=== PATIENT | female | born 1970 | race Caucasian/White ===

== ENCOUNTER → 2017-10-03 | Outpatient (CLI) | payer BC ==
[~2017-10-03] VITALS: Ht 154.9 cm; Wt 104.9 kg
[~2017-10-03] MED LIST: CALCTAB5 PO; CLR10 PO; LIOT5TAB PO; LMC/150 PO; MULTCAP42 PO; SYN150 PO; VENL100T2 PO
[2017-10-03 14:30] VITALS: BP 160/114; PULSE 101; Ht 154.9 cm; Wt 104.9 kg
== END | disposition home or self-care (01) ==
LOC: C.NEUR 14:12
PROVIDERS: ATTEND Internal Medicine Pulmonary Disease
DX: E66.01 Morbid (severe) obesity due to excess calories (principal); Z91.89 Other specified personal risk factors, not elsewhere classified; R06.81 Apnea, not elsewhere classified; R06.83 Snoring; R53.83 Other fatigue

== ENCOUNTER → 2017-10-22 | Outpatient (CLI) | payer BC ==
--- NOTE | 2017-10-23 06:31 | SPLIT NIGHT TECHNICIAN REPORT ---
[facility] Split Night Polysomnogram - Secondary History Teacher Report Study date: 10/22/2017 Referring Physician: Boston Castellon M.D. Name: AYANACHAITANYA GAR Secondary History Teacher: VALENCIA Cheney. Date of : 1970 Height: 47 years, Height 5' 1" Sex: Female Weight: 231 lbs Age: 47 Neck Circum: 14 in BMI: Medications: 43.64 CALCIUM CITRATE + D 315-200 MG/UNIT, CLARITIN, CYTOMEL, EFFEXOR 100 MG, LAMICTAL 150 MG, LEVOTHYROXINE 125 MCG, LOSARTAN 25 MG, VENLAFAXINE 50 MG Patient History 47 yr-old female here for a baseline/modified split study (CPAP to be introduced if AHI exceeds 5). She has had previous sleep testing. She was found to be positive for GUNNAR and was placed on CPAP treatment. She then had gastric bypass surgery, lost weight, and discontinued CPAP. She is back to assess her GUNNAR since gaining weight. Her Bartlett scale is 9. The test was started on room air. ETCO2 testing was not utilized during this study. Room 1 Parameters Monitored NPSG: E1-M2, E2-M1, Fp1-M2, Fp2-M1, F3-M2, F4-M2, F4-M1, C3-M2, C4-M2, C4-M1, O1-M2, O2-M2, O2-M1, T3-M2, T4-M1, P3-M2, P4-M1, CHIN1, CHIN2, HR, EKG, Legs, PFLOW, SNOR, FLOW, CFLOW, Tidal Volume, THOR, ABDO, SpO2, PLTH, CPRESS, ETCO2 Wave, ETCO2, pH SLEEP SUMMARY DATA DIAGNOSTIC TREATMENT Lights Out: 9:50:08 PM 12:35:38 AM Lights On: 12:22:38 AM 5:23:08 AM Total Recording Time (TRT): 152.5 min. 287.5 min. Total Sleep Time (TST): 134.5 min. 264.5 min. NREM Time: 134.5 min. 220.0 min. REM Time: 0.0 min. 44.5 min. Sleep Period Time (SPT): 149.5 min. 283.0 min. Sleep Efficiency (SE): 88 % 92 % Sleep Latency: 3.0 min. 4.5 min. Arousal Index: 19.2 21.6 PAP Treatment Levels: 4, 6, 7 * Optimal Pressure(s) SLEEP STAGING DATA DIAGNOSTIC TREATMENT Duration (min) TST % Duration (min) TST % Stage Wake: 18.0 min. -- 23.0 min. -- WASO: 15.0 min. -- 18.5 min. -- NREM: 134.5 min. 100 % 220.0 min. 83 % Stage N1: 27.5 min. 20 % 54.0 min. 20 % Stage N2: 79.0 min. 59 % 166.0 min. 63 % Stage N3: 28.0 min. 21 % 0.0 min. 0 % REM: 0.0 min. 0 % 44.5 min. 17 % POSITIONAL DATA Event Count Index Event Count Index Supine: 16 7 19 5.9 Supine NREM: 16 7.1 18 7.3 Supine REM: N/A N/A 1 1 Non-Supine: N/A N/A 0 0.0 Non-Supine NREM: N/A N/A 0 0.0 Non-Supine REM: N/A N/A N/A N/A AROUSAL SUMMARY DATA: Event Count Index Event Count Index Apnea Arousals: 0 0.0 0 0.2 Hypopnea Arousals: 4 1.8 5 1.1 Snore Arousals: 6 2.7 9 2.0 PLM Arousals: 15 6.7 12 2.7 Non-Specific Arousals: 15 6.7 38 8.6 Total Arousals: 43 19.2 95 21.6 MYOCLONUS (PLM) Event Count Index Event Count Index PLM: 31 13.8 49 11.1 PLM AROUSAL: 15 6.7 12 2.7 PLM W/O AROUSAL 31 13.8 37 8.4 PLM W/RESP EVENT 1 0.0 0 0.0 MYOCLONUS (PLM) Event Count Index Event Count Index LM: 4 10.7 84 19.1 LM AROUSAL: 4 1.8 31 7.0 LM W/O AROUSAL LM W/RESP EVENT LM NON SPECIFIC 33 14.7 88 20.0 HEART RATE DATA DIAGNOSTIC TREATMENT Sleep (bpm): 88 79 REM (bpm): N/A 96 NREM (bpm): 94 95 Tachycardia Count: 0 0 Tachycardia Duration: 0.00 0 Bradycardia Count: 0 0 Bradycardia Duration: 0.00 0 DIAGNOSTIC PORTION TREATMENT PORTION RESPIRATORY DATA Event Count Index Event Count Index AHI: -- 7.1 -- 4.3 RDI: -- 7.1 -- 4 Obstructive Apnea: 0 0.0 0 0.0 Central Apnea: 0 0.0 1 0.2 Mixed Apnea: 0 0.0 0 0.0 Hypopnea: 16 7.1 18 4.1 RERA: 0 0.0 0 0.0 Total Apneas: 0 0.0 1 0.2 RESPIRATORY DATA REM NREM SLEEP REM NREM SLEEP Supine Position: Obstructive Apneas: N/A 0 0 0 0 0 Central Apneas: N/A 0 0 1 0 1 Mixed Apneas: N/A 0 0 0 0 0 Hypopneas: N/A 16 16 0 18 18 RERA N/A 0 0 0 0 0 Total Supine Events: N/A 16 16 1 18 19 Supine AHI: N/A 7.1 7 1 7.3 5.9 Supine RDI: N/A 7.1 7.1 1.3 7.3 5.9 REM NREM SLEEP REM NREM SLEEP Non-Supine Position: Obstructive Apneas: N/A N/A N/A N/A 0 0 Central Apneas: N/A N/A N/A N/A 0 0 Mixed Apneas: N/A N/A N/A N/A 0 0 Hypopneas: N/A N/A N/A N/A 0 0 RERA N/A N/A N/A N/A 0 0 Total Supine Events: N/A N/A N/A N/A 0 0 Supine AHI: N/A N/A N/A N/A 0.0 0.0 Supine RDI: N/A N/A N/A N/A 0.0 0.0 OXYGEN DESTAURATION DATA: Event Count Index Event Count Index REM Desaturations: N/A N/A 3 4.0 NREM Desaturations: 26 11.6 42 11.5 SNORE DATA DIAGNOSTIC TREATMENT Snore Time: 1.7 12:40:08 AM Snore TST%: 1 2 Snore Arousal Count: 6 9 Snore Arousal Index: 2.7 2.0 Desaturation Event Summary: Minimum %SpO2 Event Count Mean/Min/Max Duration(sec.) Desaturation Index % Time In Bed > 90 80 19.2 / 6.0 / 60.0 11.0 99.9 86 - 90 0 N/A 0.0 0.1 81 - 85 1 16.3 / 16.3 / 16.3 1309.1 0.0 76 - 80 1 16.3 / 16.3 / 16.3 261.8 0.1 71 - 75 0 N/A 0.0 0.0 66 - 70 0 N/A 0.0 0.0 61 - 65 0 N/A 0.0 0.0 56 - 60 0 N/A 0.0 0.0 51 - 55 0 N/A 0.0 0.0 < 50 0 N/A 0.0 0.0 OXYGEN SATURATION DATA DIAGNOSTIC TREATMENT SpO2 Mean Sleep: 94 % 95 % SpO2 Mean REM: N/A % 96 % SpO2 Mean NREM: 94 % 95 % SpO2 Minimum Sleep: 90 % 78 % SpO2 Minimum REM: N/A % 93 % SpO2 Minimum NREM: 90 % 78 % Time Below 90% (TST): 0.0 0.2 Time Below 88% (TST): 0.0 0.2 Total REM NREM Awake <50% 0.0 min. 0.0 min. 0.0 min. 0.0 min. 51 - 60% 0.0 min. 0.0 min. 0.0 min. 0.0 min. 61 - 70% 0.0 min. 0.0 min. 0.0 min. 0.0 min. 71 - 80% 0.2 min. 0.0 min. 0.2 min. 0.0 min. 81 - 90% 0.4 min. 0.0 min. 0.2 min. 0.2 min. 91 - 100% 436.7 min. 44.5 min. 352.2 min. 39.9 min. Average 95 96 95 96 Minimum SpO2 78 93 78 84 Desaturation Event Index 11.0 4.0 11.5 17.6 # Desat. Events below 89% 1 N/A 1 N/A Time(%) with Saturation below 89% 0.1 0.0 0.1 0.0 Time(min.) with Saturation below 89% 0.3 0.0 0.2 0.1 Recording Secondary History Teacher Comments: Ms. Palmer slept in the right and supine positions. No cardiac arrhythmias were noted. PLMs were noted. No bruxism noted. Snoring was noted and scored as a 2 on a scale of 1 through 5. (0=no snoring, 5=snoring loud enough to be heard through a closed door or down the shahid way) At 12:34, she met specific Split-Night criteria during the diagnostic portion of this study. CPAP was initiated at +4 CMH2O and up-titrated to a level of +7 CMH2O, Cflex 2 which nearly eliminated all respiratory events and snoring. A Mirage FX Soft edge nasal mask size small from [employer] was used during titration. She awoke to use the restroom one time during the night. Ms. Palmer stated that she slept about the same as usual. The final report will be interpreted and signed by a sleep physician. The completed physician report will then be placed in the patient medical record. Therapy Event: Therapy (cm H20) 0 4 6 7 Total Time at Pressure (min.) 152.5 27.3 102.5 157.7 TST at Pressure (min.) 134.5 20.8 94.5 149.2 # Periods 1 1 1 1 Sleep Onset (min.) 3.0 4.5 0.0 0.0 REM Onset (min.) N/A N/A N/A 73.2 Sleep Efficiency % 88 76 92 94 Wakefulness (%) 11.8 23.8 7.8 5.4 Wakefulness (min.) 18.0 6.5 8.0 8.5 NREM 1 (%) 18.0 51.2 15.1 15.5 NREM 1 (min.) 27.5 14.0 15.5 24.5 NREM 2 (%) 51.8 25.0 77.1 50.9 NREM 2 (min.) 79.0 6.8 79.0 80.2 NREM 3 (%) 18.4 0.0 0.0 0.0 NREM 3 (min.) 28.0 0.0 0.0 0.0 REM (%) 0.0 0.0 0.0 28.2 REM (min.) 0.0 0.0 0.0 44.5 # Arousals 43 20 34 41 Arousal Index 19.2 57.6 21.6 16.5 # Snore 62 2 14 25 Snore Index 27.7 5.8 8.9 10.1 AHI 7.1 34.6 2.5 1.2 AHI Supine 7.1 34.6 10.4 1.2 AHI Non-Supine N/A N/A 0.0 N/A NREM AHI 7.1 34.6 2.5 1.1 REM AHI N/A N/A N/A 1.3 RDI 7.1 34.6 2.5 1.2 # Obstructive 0 0 0 0 # Central Ap 0 0 0 1 # Mixed 0 0 0 0 # Hypopneas 16 12 4 2 RERAS 0 0 0 0 Total Respiratory Events 16 12 4 3 Time Below SpO2 89.00% (min.) 0.0 0.0 0.0 0.2 Mean NREM SpO2 (%) 94 95 95 95 Mean REM SpO2 (%) N/A N/A N/A 96 Mean Sleep SpO2 (%) 94 95 95 95 Min NREM SpO2 (%) 90 91 91 78 Min REM SpO2 (%) N/A N/A N/A 93 Position Supine (min.) 134.5 20.8 23.1 149.2 Position Non-supine (min.) 0.0 0.0 71.3 0.0 LM Index Sleep 24.5 46.1 28.6 29.0 LM Index NREM 24.5 46.1 28.6 18.9 LM Index REM N/A N/A N/A 52.6 Mean Heart Rate (bpm) 88 79 81 77 Min Heart Rate (bpm) 78 73 72 67 CPAP REPORT Therapy Detail Time / Page # Comment CPAP 4 cm H2O Nasal Mask Flex Pressure Relief Humidifier on 12:34:36 AM / pg. 443 SHE HAS OVER 2 HOURS OF TEST AND HER AHI IS ABOVE 5 (PER THE DOCTORS H&P) CPAP 6 cm H2O Nasal Mask Flex Pressure Relief Humidifier on 1:02:58 AM / pg. 500 INCREASED FOR HYPOPNEAS CPAP 7 cm H2O Nasal Mask Flex Pressure Relief Humidifier on 2:45:25 AM / pg. 705 INCREASED FOR MORE HYPOPNEAS
--- NOTE | 2017-10-24 17:06 | POLYSOMNOGRAPH REPORT ---
CLINICAL DATA: A 47-year-old female with a history of sleep apnea. The patient had been on CPAP and then had gastric bypass surgery. She is back for reassessment of possible sleep apnea. This was a split night study. SLEEP ARCHITECTURE: For the diagnostic portion of the study, sleep period time was 149.5 minutes. Total sleep time was 134.5 minutes, all non-REM sleep. Sleep latency was 3 minutes. Sleep efficiency was 88%. Sleep consisted of stage N1 20%, stage N2 59%, and stage N3 21%. For the treatment portion of the study, sleep period time was 283 minutes. Total sleep time was 264.5 minutes divided between 220 minutes of non-REM sleep and 44.5 minutes of REM sleep. Sleep latency was 4.5 minutes. Sleep efficiency was 92%. Sleep consisted of stage N1 20%, stage N2 63%, and REM 17%. AROUSAL DATA: Prior to treatment, 43 arousals were recorded for an index of 19.2 per hour. During treatment, 95 arousals were recorded for an index of 21.6 per hour. PLM DATA: Prior to treatment, 33 limb movements during sleep were noted for an index of 14.7 per hour. During treatment, 88 limb movements during sleep were noted for an index of 20 per hour. EKG: Heart rates ranged from 79-96 beats per minute. No arrhythmias were noted. RESPIRATORY DATA: Mild sleep apnea was documented prior to treatment. The AHI was 7.1. There were 16 hypopneic episodes. During treatment, the AHI was 4.3. There was 1 central apneic episode and 18 hypopneic episodes. OXIMETRY DATA: Oxygen simone was 78% during non-REM sleep during treatment. Mean saturation with treatment was 95%. GYROSCOPE TECHNICIAN'S COMMENTS AND TREATMENT SUMMARY: The patient slept in the right, supine position. Snoring was mild, rated 2 on a scale of 5. At 12:34 a.m., she met modified split night criteria. CPAP was started using a Mirage FX soft edge nasal mask from [employer]. She was titrated up to 7 cm water pressure, C-Flex setting 2. At her final pressure setting, she slept for 149.2 minutes with an AHI of 1.2. IMPRESSION: Mild obstructive sleep apnea/hypopnea with nocturnal hypoxemia corrected with CPAP 7 cm water pressure, C-Flex setting 2 using a Mirage FX soft edge nasal mask from [employer]. RECOMMENDATIONS: The patient will be started on the above-noted treatment regimen and seen back in followup within 90 days to document efficacy and compliance. MTDD
== END | disposition home or self-care (01) ==
LOC: C.NEUR 21:00
PROVIDERS: ATTEND Internal Medicine Pulmonary Disease
DX: Z91.89 Other specified personal risk factors, not elsewhere classified (principal); R53.83 Other fatigue; E66.01 Morbid (severe) obesity due to excess calories; R06.83 Snoring; R06.81 Apnea, not elsewhere classified

== ENCOUNTER → 2017-10-28 | Outpatient (CLI) | payer BC ==
[~2017-10-28] VITALS: Ht 154.9 cm; Wt 103.2 kg
[2017-10-28 15:15] VITALS: BP 138/87; PULSE 97; Ht 154.9 cm; Wt 103.2 kg
== END | disposition home or self-care (01) ==
LOC: C.NEUR 15:10
PROVIDERS: ATTEND Internal Medicine Pulmonary Disease
DX: G47.33 Obstructive sleep apnea (adult) (pediatric) (principal); E66.01 Morbid (severe) obesity due to excess calories; R53.83 Other fatigue; I10 Essential (primary) hypertension

== ENCOUNTER 2019-08-12 15:12 | Inpatient (IN) ==
[2019-08-12 16:20] LABS: Basophils # (auto) 0.04 K/uL (0-0.2); Basophils % (auto) 0.8 %; Eosinophils # (auto) 0.05 K/uL (0-0.5); Hematocrit (blood only) 37.6 % (37-47); Hemoglobin 12.3 g/dL (12.0-16.0); Immature Granulocytes # (auto) 0.01 K/uL (0.00-0.02); Immature Granulocytes % (auto) 0.2 %; Lymphocytes # (auto) 1.42 K/uL (1.2-3.4); Lymphocytes % (auto) 28.1 %; Mean Corpuscular Hemoglobin 28.8 pg (25-34); Mean Corpuscular Hgb Conc 32.7 g/dL (32-36); Mean Corpuscular Volume 88.1 fL (80-100); Mean Platelet Volume 9.4 fL (7.4-10.4); Monocytes % (auto) 5.9 %; Neutrophils # (auto) 3.23 K/uL (1.4-6.5); Platelet Count 245 K/uL (130-400); RDW Coefficient of Variation 13.4 % (11.5-14.5); Red Blood Count 4.27 M/uL (4.2-5.4); White Blood Count 5.05 K/uL (4.8-10.8)
[2019-08-12 16:38] LABS: Albumin Level 3.3 gm/dl (3.4-5.0); BUN Creatinine Ratio 15.4 (10-20); Calcium 8.7 mg/dl (8.5-10.1); Creatinine Clr Calc Pharmacy 124.4 ml/min; Est GFR (African American) 122.3; Est GFR (Non-African American) 105.5; Potassium 3.8 mmol/L (3.5-5.1)
[2019-08-12 16:49] LABS: Albumin Globulin Ratio 0.8 (0.9-2); Bilirubin,Total 0.2 mg/dl (0.2-1); Thyroid Stimulating Hormone 1.89 uIu/ml (0.300-4.500); Total Protein 7.3 gm/dl (6.4-8.2)
[2019-08-12 16:53] LABS: Acetaminophen < 2 ug/ml (10-30); Salicylate < 1.7 mg/dl (2.8-20)
[2019-08-12] MEDS ORDERED: ACETAMINOPHEN 500 MG TAB PO STA (18:10)
[2019-08-12 18:19] LABS: Appearance Urine Clear (Clear); Bilirubin Urine Negative (Negative); Blood Urine Negative (Negative); Color Urine Yellow; Glucose Urine UA Negative (Negative); Ketones Urine Negative (Negative); Leukocyte Esterase Urine Negative (Negative); Nitrite Urine Negative (Negative); Protein Urine Negative (Negative); Specific Gravity Urine 1.011 (1.000-1.030); Urobilinogen Urine Negative (Negative); pH Urine 8.5 (4.5-7.5)
[2019-08-12 18:36] LABS: Amphetamines+Metham, Urine Neg (Neg); Barbiturates, Urine Neg (Neg); Benzodiazepine, Urine Neg (Neg); Cocaine, Urine Neg (Neg); MDMA (Ecstacy), Urine Neg (Neg); Methadone, Urine Neg (Neg); Opiate, Urine Neg (Neg); Phencyclidine, Urine Neg (Neg)
[2019-08-12] MEDS ORDERED: LIDOCAINE/EPINEPHRINE 1% 20 ML VIAL INFIL ONE (20:45)
--- NOTE | 2019-08-12 21:25 | Emergency Department Note ---
Entered by Rosalee Lopez acting as a scribe for History of Present Illness General Chief complaint: Mental Health Evaluation Stated complaint: MENTAL HEALTH EVALUATION Time Seen by Provider: 08/12/19 15:33 Source: patient History of Present Illness Onset (ago): month(s) 1 Location: head, upper extremity and lower extremity Maximum Pain Intensity: 1 Quality: + other (mental health evaluation) Associated symptoms: + other (Positive SI, difficulties sleeping, loss of interest in things that used to bring her max, feeling guilty about how she is feeling and how this has affected her relationship, loss of energy. Negative HI, smoking, recent alcohol use, chance of ) The patient is a 49 year old female who presents to the ED for a mental health evaluation. She states she has had suicidal ideations for many years however, they have worsened over the past month and week. She notes she has not recently attempted suicide. She states she does not have a specific plan. She notes she has access to old pain pills at home but she asked her friend to take them away from her. She reports her has a hand gun in a lock box in the garage. The patient states she has been diagnosed with major depression and sees Dr. Reilly. She states she is in therapy with Diann Burger. She is on effexor, Lamictal, and wellbutrin. The patient states she has difficulties sleeping, loss of interest in things that used to bring her max. She states she feels guilty about how she is feeling and how this has affected her relationship. She states she has less energy but denies any HI, smoking, recent alcohol use, chance of . Home Medications Home Medications Medication Instructions Recorded Confirmed Type calcium citrate malate-vitamin D3 1 tab PO BID tab 12/25/18 08/12/19 History 250 mg-100 unit tablet lamotrigine 150 mg tablet 150 mg PO HS 12/25/18 08/12/19 History levothyroxine 125 mcg capsule 125 mcg PO DAILY 12/25/18 08/12/19 History multivitamin-calcium carb 1 tab PO DAILY 12/25/18 08/12/19 History loratadine 10 mg capsule 10 mg PO HS PRN cap 01/22/19 08/12/19 History bupropion HCl [Wellbutrin XL] 150 mg PO DAILY 08/12/19 08/12/19 History liothyronine [Cytomel] 5 mcg PO DAILY 08/12/19 08/12/19 History losartan [Cozaar] 75 mg PO DAILY 08/12/19 08/12/19 History meclizine 25 mg PO TID PRN 08/12/19 08/12/19 History venlafaxine 150 mg PO TID 08/12/19 08/12/19 History Allergies Allergy/AdvReac Type Severity Reaction Status Date / Time adhesive Allergy Unknown REDNESS, Verified 08/12/19 17:37 ITCHINESS No Known Drug Allergies Allergy Unknown . Verified 08/12/19 17:37 Past Med/Surg History Medical History Depression (Acute) Hypertension (Acute) Hypothyroidism (Acute) Obstructive sleep apnea (Acute) Surgical History No pertinent past surgical history Family History Other No pertinent family history in first degree relatives Social History Preferred Language: Singaporean Feels Safe at Home: Yes Smoking Status: Former smoker Review of Systems See HPI for pertinent positives & negatives. and A total of 10 systems reviewed and were otherwise negative Physical Exam Vital Signs Vital Signs - 24 hr 08/12/19 15:16 08/12/19 20:14 08/12/19 21:40 Temperature 36.8 C Temperature Source Oral Pulse Rate 90 Pulse Rate [Right Radial] 88 Pulse Rhythm Regular Pulse Strength Normal Respiratory Rate 16 18 Respiratory Effort / Characteristics Non-Labored Non-Labored Respiratory Depth Normal Normal Respiratory Pattern Regular Blood Pressure 183/134 H Blood Pressure [Right Arm] 162/103 H 139/89 Blood Pressure Mean 150 Blood Pressure Mean [Right Arm] 122 105 Blood Pressure Position Sitting Blood Pressure Position [Right Arm] Lying Lying Pulse Oximetry 100 96 Oxygen Delivery Method Room Air Sepsis Recent Fever Within 48 Hours No Sepsis Action Taken by Nursing No Action Required GENERAL: She is oriented to person, place, and time. She appears well-developed and well-nourished. She does not appear distressed. HENT: Exam performed. Head: Normocephalic and atraumatic. Right Ear: External ear normal. No mastoid tenderness. Left Ear: External ear normal. No mastoid tenderness. Mouth/Throat: The oropharynx is clear and moist. No trismus in the jaw. No dental abscesses or uvula swelling. No oropharyngeal exudate or tonsillar abscesses. EYES: Conjunctivae and EOM are normal. Pupils are equal, round, and reactive to light. Right eye exhibits no discharge. Left eye exhibits no discharge. No scleral icterus. NECK: Normal range of motion. Neck supple. No JVD present. No spinous process tenderness present. No carotid bruit present. No rigidity. No tracheal deviation and normal range of motion present. No Brudzinski's sign and no Kernig's sign noted. CV: Normal rate, regular rhythm, normal heart sounds and intact distal pulses. There is no peripheral edema. Palpable radial pulses bue. PULM/CHEST: Effort normal and breath sounds normal. No respiratory distress. No stridor. She has no wheezes. She has no rales. Chest Wall: She exhibits no tenderness. ABD: The abdomen is soft. Bowel sounds are normal. She has no distension. No mass is present. There is no tenderness. There is no rebound, no guarding, no Combs's sign and no tenderness at McBurney's point. Rovsig negative MUSC/SKEL: Normal range of motion. There is no peripheral edema, tenderness or deformity. LYMPH: No cervical adenopathy. NEURO: She is alert and oriented to person, place, and time. She has normal strength. No cranial nerve deficit or sensory deficit. Coordination and gait normal. GCS eye subscore is 4. GCS verbal subscore is 5. GCS motor subscore is 6. cerbellar tests wnl. SKIN: Skin is warm and dry. She is not diaphoretic. PSYCH: Flat affect. Appears depressed. Positive SI Course Course 1637: Past medical records reviewed. The patient was evaluated in room C8. A complete history and physical exam was performed. 1800: Patient medically cleared. Vital signs stable. Patient is willing to come into the hospital for inpatient psychiatric treatment voluntarily. I think this will be beneficial to the patient, awaiting psychiatric inpatient evaluation and placement. Patient placed in observation at this time. Administered Medications Discontinued Medications Acetaminophen (Tylenol) 1,000 mg PO NOW STA Stop: 08/12/19 18:11 Last Admin: 08/12/19 18:35 Dose: 1,000 mg Documented by: [id number] Lidocaine/Epinephrine (Xylocaine/Epinephrine 1%) 20 ml INFIL NOW ONE Stop: 08/12/19 20:46 Last Admin: 08/12/19 21:40 Dose: Not Given Documented by: [id number] Medical Decision Making Medical Records Attestation: I reviewed the patient's medical records. Home Medications Current Medication List: was personally reviewed by me Laboratory Data Attestation: I reviewed the patient's lab results. Result diagrams: 08/12/19 16:06 08/12/19 16:06 Lab Results 08/12/19 08/12/19 08/12/19 Range/Units 16:06 16:06 16:06 WBC 5.05 (4.8-10.8) K/uL RBC 4.27 (4.2-5.4) M/uL Hgb 12.3 (12.0-16.0) g/dL Hct 37.6 (37-47) % MCV 88.1 (80-100) fL MCH 28.8 (25-34) pg MCHC 32.7 (32-36) g/dL RDW Std Deviation 43.0 (36.4-46.3) fL RDW Coeff of Mark 13.4 (11.5-14.5) % Plt Count 245 (130-400) K/uL MPV 9.4 (7.4-10.4) fL Immature Gran % (Auto) 0.2 % Neut % (Auto) 64.0 % Lymph % (Auto) 28.1 % Baxter % (Auto) 5.9 % Eos % (Auto) 1.0 % Baso % (Auto) 0.8 % Immature Gran # (Auto) 0.01 (0.00-0.02) K/uL Neut # (Auto) 3.23 (1.4-6.5) K/uL Lymph # (Auto) 1.42 (1.2-3.4) K/uL Baxter # (Auto) 0.30 (0.11-0.59) K/uL Eos # (Auto) 0.05 (0-0.5) K/uL Baso # (Auto) 0.04 (0-0.2) K/uL Sodium 141 (136-145) mmol/L Potassium 3.8 (3.5-5.1) mmol/L Chloride 107 (98-107) mmol/L Carbon Dioxide 28 (21-32) mmol/L Anion Gap 6.0 (3-11) BUN 10 (7-18) mg/dl Creatinine 0.64 (0.6-1.2) mg/dl Est Cr Clr Drug Dosing 124.4 ml/min Est GFR ( Amer) 122.3 Est GFR (Non-Af Amer) 105.5 BUN/Creatinine Ratio 15.4 (10-20) Glucose 107 H (70-99) mg/dl Calcium 8.7 (8.5-10.1) mg/dl Total Bilirubin 0.2 (0.2-1) mg/dl AST 14 L (15-37) U/L ALT 21 (12-78) U/L Alkaline Phosphatase 152 H (45-117) U/L Total Protein 7.3 (6.4-8.2) gm/dl Albumin 3.3 L (3.4-5.0) gm/dl Globulin 4.0 (2.5-4.0) gm/dl Albumin/Globulin Ratio 0.8 L (0.9-2) TSH 1.890 (0.300-4.500) uIu/ml Urine Color Urine Appearance (Clear) Urine pH (4.5-7.5) Ur Specific [place] (1.000-1.030) Urine Protein (Negative) Urine Glucose (UA) (Negative) Urine Ketones (Negative) Urine Blood (Negative) Urine Nitrite (Negative) Urine Bilirubin (Negative) Urine Urobilinogen (Negative) Ur Leukocyte Esterase (Negative) Salicylates < 1.7 L (2.8-20) mg/dl Urine Opiates Screen (Neg) Ur Methadone, Qual (Neg) Acetaminophen < 2 L (10-30) ug/ml Urine Barbiturates (Neg) Ur Phencyclidine (PCP) (Neg) U Amphetamin/Meth Scrn (Neg) MDMA (Ecstasy) Screen (Neg) U Benzodiazepines Scrn (Neg) Ur Cocaine Metabolite (Neg) U Marijuana (THC) Screen (Neg) Ethyl Alcohol mg/dL (0-3) mg/dl 08/12/19 08/12/19 08/12/19 Range/Units 16:06 17:50 17:50 WBC (4.8-10.8) K/uL RBC (4.2-5.4) M/uL Hgb (12.0-16.0) g/dL Hct (37-47) % MCV (80-100) fL MCH (25-34) pg MCHC (32-36) g/dL RDW Std Deviation (36.4-46.3) fL RDW Coeff of Mark (11.5-14.5) % Plt Count (130-400) K/uL MPV (7.4-10.4) fL Immature Gran % (Auto) % Neut % (Auto) % Lymph % (Auto) % Baxter % (Auto) % Eos % (Auto) % Baso % (Auto) % Immature Gran # (Auto) (0.00-0.02) K/uL Neut # (Auto) (1.4-6.5) K/uL Lymph # (Auto) (1.2-3.4) K/uL Baxter # (Auto) (0.11-0.59) K/uL Eos # (Auto) (0-0.5) K/uL Baso # (Auto) (0-0.2) K/uL Sodium (136-145) mmol/L Potassium (3.5-5.1) mmol/L Chloride (98-107) mmol/L Carbon Dioxide (21-32) mmol/L Anion Gap (3-11) BUN (7-18) mg/dl Creatinine (0.6-1.2) mg/dl Est Cr Clr Drug Dosing ml/min Est GFR ( Amer) Est GFR (Non-Af Amer) BUN/Creatinine Ratio (10-20) Glucose (70-99) mg/dl Calcium (8.5-10.1) mg/dl Total Bilirubin (0.2-1) mg/dl AST (15-37) U/L ALT (12-78) U/L Alkaline Phosphatase (45-117) U/L Total Protein (6.4-8.2) gm/dl Albumin (3.4-5.0) gm/dl Globulin (2.5-4.0) gm/dl Albumin/Globulin Ratio (0.9-2) TSH (0.300-4.500) uIu/ml Urine Color Yellow Urine Appearance Clear (Clear) Urine pH 8.5 H (4.5-7.5) Ur Specific [place] 1.011 (1.000-1.030) Urine Protein Negative (Negative) Urine Glucose (UA) Negative (Negative) Urine Ketones Negative (Negative) Urine Blood Negative (Negative) Urine Nitrite Negative (Negative) Urine Bilirubin Negative (Negative) Urine Urobilinogen Negative (Negative) Ur Leukocyte Esterase Negative (Negative) Salicylates (2.8-20) mg/dl Urine Opiates Screen Neg (Neg) Ur Methadone, Qual Neg (Neg) Acetaminophen (10-30) ug/ml Urine Barbiturates Neg (Neg) Ur Phencyclidine (PCP) Neg (Neg) U Amphetamin/Meth Scrn Neg (Neg) MDMA (Ecstasy) Screen Neg (Neg) U Benzodiazepines Scrn Neg (Neg) Ur Cocaine Metabolite Neg (Neg) U Marijuana (THC) Screen Neg (Neg) Ethyl Alcohol mg/dL < 3.0 (0-3) mg/dl Blood Pressure Blood Pressure Findings: Elevated blood pressure Additional Comments: further management by behavioral health MDM Narrative Indication: Psychiatric placement. Patient, with depression, suicidal ideation, hypothyroidism, obstructive sleep apnea was first seen at 1637 and the observation time began at 1800 and was necessary in order to determine inpatient psychiatric placement. Upon re- evaluation, 2200 revealed that the patient should be admitted to [facility] [address] for inpatient psychiatric care. Disposition date and time August 12, 2019 at 2200. Total observation time: 4 hours Impression & Plan Depression, Suicidal ideation Discharge Plan Visit Data Chief Complaint: Mental Health Evaluation Stated Complaint: MENTAL HEALTH EVALUATION ED Provider: Ascencion Campbell Discharge Problem: Depression, Suicidal ideation Patient Disposition: Transfer Behavioral Health Fac Forms Stand Alone Forms: [facility], Suicide Prevention Resources Prescriptions Prescriptions: No Action calcium citrate malate-vit D3 250-100 mg-unit tablet 1 tab PO BID RF: 0 lamotrigine [Lamictal] 150 mg tablet 150 mg PO HS RF: 0 levothyroxine 125 mcg capsule 125 mcg PO DAILY RF: 0 Flintstones Plus Calcium tablet,chewable 1 tab PO DAILY RF: 0 loratadine [Claritin Liqui-Gel] 10 mg capsule 10 mg PO HS PRN (Reason: ALLERGIES) RF: 0 losartan [Cozaar] 50 mg tablet 75 mg PO DAILY RF: 0 venlafaxine 100 mg tablet 150 mg PO TID RF: 0 meclizine 25 mg tablet 25 mg PO TID PRN (Reason: DIZZY) RF: 0 bupropion HCl [Wellbutrin XL] 150 mg tablet extended release 24 hr 150 mg PO DAILY RF: 0 liothyronine [Cytomel] 5 mcg tablet 5 mcg PO DAILY RF: 0 Referrals Referrals: Candace Xavier DO [Primary Care Provider] - Discharge Problem: Depression Qualifiers: Depression Type: unspecified Qualified Code(s): F32.9 - Major depressive disorder, single episode, unspecified The scribe's documentation has been prepared under my direction and personally reviewed by me in its entirety. I confirm that the note above accurately reflects all work, treatment, procedures, and medical decision making performed by me.
[2019-08-12] MEDS ORDERED: MAGNESIUM HYDROXIDE SUSP 30 ML UDC PO PRN (21:43)
[2019-08-12] MEDS ORDERED: BISMUTH SUBSALICYLATE PER ML OMNICELL CHARGE PO PRN (21:43)
[2019-08-12] MEDS ORDERED: ALUMINUM/MAGNESIUM SUSP 30 ML UDC PO PRN (21:43)
[2019-08-12] MEDS ORDERED: ACETAMINOPHEN 325 MG TAB PO PRN (21:43)
[2019-08-12] MEDS ORDERED: MECLIZINE HCL 25 MG TAB PO PRN (22:29)
[2019-08-12] MEDS ORDERED: LORATADINE 10 MG TAB PO PRN (22:31)
[2019-08-13] MEDS: lamoTRIgine 100 MG TAB PO SCH ×2 (00:01→21:09)
[2019-08-13] MEDS: VENLAFAXINE HCL 37.5 MG TAB PO SCH ×4 (00:01→21:08)
[2019-08-13] MEDS ORDERED: BuPROPion XL 150 MG TABCR PO SCH (09:00)
[2019-08-13] MEDS: FLINTSTONES COMPLETE CHEWABLE TAB PO SCH (09:24)
[2019-08-13] MEDS: CALCIUM 600MG + VIT D 400 IU TAB PO SCH ×2 (09:24→21:08)
[2019-08-13] MEDS: LEVOTHYROXINE SODIUM 125 MCG TABLET PO SCH (09:24)
[2019-08-13] MEDS: LIOTHYRONINE SODIUM 5 MCG TAB PO SCH (09:24)
[2019-08-13] MEDS: LOSARTAN POTASSIUM 25 MG TAB PO SCH (09:24)
[2019-08-13] MEDS ORDERED: BuPROPion XL 150 MG TABCR PO STA (10:59)
[2019-08-13] MEDS ORDERED: ZOLPIDEM TARTRATE 10 MG TAB PO PRN (11:05)
--- NOTE | 2019-08-13 12:27 | History & Physical ---
Date of Service August 13, 2019 Impression / Recommendations Impression This a 49-year-old woman was admitted to the [facility] behavioral health unit after presenting with suicidal thoughts with a plan to overdose on available medications. She reports that she has suffered from symptoms of depression since childhood, and while these symptoms have waxed and waned over the years, her depressive symptoms have been worse in the past 1 year, and have increased significantly in the past 2 months. She does not identify any specific precipitating factor, but notes that she and her of 7 years have ongoing issues related to their varied styles of communication. Also, the patient says that she finds it very hard to tell her that she would prefer to have a certain amount of time alone, given the fact that her prefers to spend most of their time together. However, I do not believe that this difficulty explains the patient's current emotional distress. Instead, I believe that her chronic underlying depression, complicated by very poor sleep (the patient slept 4.75 h ours last night, awoke frequently, and tells me that she slept better last night than she has "in months"), and a set of work-related stressors having to do with her difficulty concentrating and focusing and, therefore, need to work after hours in order to keep up with the demands are at the core of the problem. We talked about strategies for improving her sleep. She reports that her outpatient psychiatrist, Wisam Noble, who prescribed trazodone (dose unspecified) but the patient said that she may have slept better with trazodone, but had excess sedation during the day and did not take it. She also tells us that when bupropion extended release was added to her medication regimen (which has included venlafaxine 150 mg 3 times daily and lamotrigine 150 mg at bedtime) she notices a significant improvement in her ability to concentrate and complete tasks without excessive fatigue. However, this benefit seems to have plateaued or dissipated, so we discussed increasing her dose of extended release bupropion from a dose of 150 mg a day to a dose of 300 mg a day. The patient and her may benefit from marital therapy as a way of addressing some of the communication concerns with the patient speaks of. (1) Depression: 08/13/19 -Patient reports she suffers from chronic, recurrent depression, worse for the past year and particularly for the past 2 months. Bupropion was added, evidently as an adjunct, approximately 2 months ago which seems to correspond with the patient's report that her symptoms have worsened in the past 2 months. However, the patient says that she feels pretty certain that the worsening depression has more to do with poor sleep and situational difficulties and that, in fact, she felt that bupropion was helpful and that it allowed her to concentrate and focus better. -We are increasing her dose of bupropion extended release from 150 mg a day to a dose of 300 mg a day. We will also continue venlafaxine 150 mg 3 times daily and lamotrigine 150 mg daily. Depression Type: unspecified Qualified Code(s): F32.9 - Major depressive disorder, single episode, unspecified Present on Admission?: Yes (2) Suicidal ideation: 08/13 -Patient reports chronic suicidal thoughts, beginning in childhood, although she also notes that she has never made an actual suicide attempt. There is a history of intentional self-injurious behaviors, such as self cutting. Although these behaviors reportedly had stopped several years ago, recently the patient became alarmed when she began once again to hit her head deliberately against a wall as a way of relieving stress. She expresses a concern that she will accidentally more seriously injure herself. -The patient acknowledges that she was having thoughts of taking an overdose of medications. The patient also reports that the context for this was the fact that she was feeling distressed by the demands of work, the fact that she is having to work extra hours and is taking her a particularly long time to complete tasks because of poor concentration. (The patient does not have a history of ADHD symptoms.) -The patient has been admitted to the [facility] behavioral health unit where she is on suicide precautions and is being encouraged to participate in individual, group and activity therapies as a way of developing improved coping strategies. We also plan to actively involve the patient's and the treatment Present on Admission?: Yes (3) Obstructive sleep apnea: 08/13 -Patient is using her CPAP on the unit. She notes that there has been no change in her CPAP settings, and that sleep difficulties have always been an issue for herboth initial and intermittent insomnia. -We are adding Ambien 10 mg at bedtime to the patient's medication regimen. Material risks, including but not limited to the potential for habituation, sleepwalking, amnesia, fall risk, and exacerbation of sleep apnea were reviewed with the patient and she indicated understanding. There is a risk in this patient associated with using Ambien, but her consistent poor sleep seems to clearly be contributing to her level of depression and distress. (4) Hypertension: 08/13 -We will prescribe losartan for hypertension, and we will continue to monitor. Currently, the patient's blood pressure remains elevated. Present on Admission?: Yes (5) Hypothyroidism: 08/13 -The patient's TSH at admission was 1.89. She reports that her hypothyroidism is being followed on an outpatient basis. Present on Admission?: Yes Risk Factors Assessment The patient reports chronic thoughts of suicide, and has a diagnosis of recurrent major depression. There is a history of intentional self-injurious behaviors. Mitigating factors include a supportive spouse, a stable job, and the fact that the patient has no past history of actual suicide attempts. 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 She has a history of recurrent depression and chronic suicidal thoughts. She was admitted on 08/12/19 21:43 on a 201 voluntary agreement because of suicidal ideation with a plan to overdose on a supply of existing medications.. Chief Complaint " My depression and thoughts of suicide have been getting worse, particularly in the past 2 months." History of Present Illness The patient is a 49-year-old woman who was admitted through the emergency department yesterday after she presented and reported active suicidal thoughts that included taking an overdose of a supply of existing medications that she happened to have on hand. The patient reports that she has suffered from symptoms of depression since childhood, and these symptoms have gotten progressively worse over the course of the past year and, particularly within the past 2 months. Symptoms of depression include depressed mood, difficulty concentrating, anhedonia, initial and intermittent insomnia, anergia and apathy. Although the patient does not necessarily believe that there is anyone precipitating factor, and while she notes that her pattern has been to also become depressed for no particular identifiable reason, she notes that she and her of approximately 7 years have had ongoing communication problems. These problems include the fact that the patient would sometimes prefer to be alone, while her often wants to "do everything together." Also, the patient's reportedly is fairly blunt, while the patient, herself, tends to be more circumspect. Nevertheless, the relationship is described by the patient as being mutually supportive and fairly solid. She tells us that she has never actually made a suicide attempt, but has had chronic thoughts of suicide throughout most of her life. She has, however, engaged in self-injurious behaviors over the years. These have included self cutting and banging her head against a wall. She had not engaged in these behaviors for a matter of years, but in the past several months has once again began hitting her head against a wall as a way of relieving emotional tension. The patient notes that this resume behavior is a significant source of concern for the patient and she is afraid that she might inadvertently injure herself. Past Psychiatric History Previous Psych History: Patient reports that she was hospitalized in a psychiatric unit in [place], approximately 25 years ago. She has been offered trials of a number of psychiatric medications including various selective serotonin reuptake inhibitors, selective norepinephrine reuptake inhibitors, and tricyclic antidepressant medications. Of these, she has found venlafaxine to be the most effective. Bupropion extended release 150 mg was added several months ago. Initially, the patient reported that it improved her ability to concentrate and focus, and also resulted in some increase in energy. However, this improvement has plateaued. Patient also has been in individual psychotherapy and reports that she maintains a good relationship with her outpatient therapist. Further, she sees Dr. Wisam Noble, a psychiatrist in [place], and she reports that she has a similarly positive relationship with Dr. Carlson. Current Psychiatric Diagnosis: MDD and anxiety Do You Have Access To A Gun?: No History of Previous Suicide Attempt: No Describe Attempts in the Past: Denies Allergies Allergy/AdvReac Type Severity Reaction Status Date / Time adhesive Allergy Unknown REDNESS, Verified 08/12/19 17:37 ITCHINESS No Known Drug Allergies Allergy Unknown . Verified 08/12/19 17:37 Home Medications Home Medications Medication Instructions Recorded Confirmed Type calcium citrate malate-vitamin D3 1 tab PO BID tab 12/25/18 08/12/19 History 250 mg-100 unit tablet lamotrigine 150 mg tablet 150 mg PO HS 12/25/18 08/12/19 History levothyroxine 125 mcg capsule 125 mcg PO DAILY 12/25/18 08/12/19 History multivitamin-calcium carb 1 tab PO DAILY 12/25/18 08/12/19 History loratadine 10 mg capsule 10 mg PO HS PRN cap 01/22/19 08/12/19 History bupropion HCl [Wellbutrin XL] 150 mg PO DAILY 08/12/19 08/12/19 History liothyronine [Cytomel] 5 mcg PO DAILY 08/12/19 08/12/19 History losartan [Cozaar] 75 mg PO DAILY 08/12/19 08/12/19 History meclizine 25 mg PO TID PRN 08/12/19 08/12/19 History venlafaxine 150 mg PO TID 08/12/19 08/12/19 History Family History Family History of: Depression and Suicide Completion Family Mental Health History Comment: Reports that her grandfather, father, and older brother all suffered from depression Alcohol History Hx of Alcohol Use Over the Past 12 Months: Yes (Occasional) AUDIT Total Score: 1 Smoking Use Have You Smoked or Used Tobacco Products in the Last 30 Days: No Smoking Status: Former smoker Substance History Hx of Prescription Med Misuse Over the Past 12 Months: No Hx of Over the Counter Med Misuse Over the Past 12 Months: No Hx of Inhalent Misuse Over the Past 12 Months: No Hx of Organic Substance Use Over the Past 12 Months: No Hx of Illegal Substances/Street Drug Use Over Past 12 Months: No Problems as a Result of Past Substance Use: None Identified Personal History Living Arrangements: Home Living Arrangements Comments: Lives with Highest Grade Completed: Graduate School Highest Grade Completed Comment: 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 completed 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 school Marital Status: Beliefs That Will Affect Care: None Patient History Medical History Depression (Acute) Hypertension (Acute) Hypothyroidism (Acute) Obstructive sleep apnea (Acute) Surgical History No pertinent past surgical history Family History Other No pertinent family history in first degree relatives Social History Preferred Language: Zambian Communication Ability: Effective 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 Ascencion Campbell have been reviewed and are accepted for purposes of medical clearance to the behavioral health unit. Physical Exam Psychiatric: Orientation: alert, oriented x 3 and cooperative Apperance: appropriately dressed and appropriately groomed Eye Contact: + fair eye contact Motor Behavior: steady gait and station Speech: normal rate/rhy thm/volume of speech Affect: + depressed affect Mood: + depressed mood Thought Process: linear/logical thought process and clear/coherent thought process Thought Content: reality based without delusions Patient reports chronic suicidal thoughts. She says that she is able to contract for safety in the hospital, but worries that she may have serious harm to herself in the community at this point if released. Homicidal Thoughts: denies homicidal thoughts Hallucinations: no auditory hallucinations Cognition: recent memory grossly intact, remote memory grossly intact, attention grossly intact and language grossly intact Estimated Intelligence: + above average estimated intelligence Insight: good insight Judgement: good judgement Vital Signs (Past 24 Hours): Last Vital Signs Temp 36.5 C 08/13/19 06:39 Pulse 78 08/13/19 06:40 Resp 18 08/13/19 06:39 BP 157/111 H 08/13/19 06:40 Pulse Ox 96 08/12/19 22:15 Results & Data ([facility]) Laboratory Results Laboratory Results - last 24 hr 08/12/19 08/12/19 08/12/19 16:06 16:06 16:06 WBC 5.05 RBC 4.27 Hgb 12.3 Hct 37.6 MCV 88.1 MCH 28.8 MCHC 32.7 RDW Std Deviation 43.0 RDW Coeff of Mark 13.4 Plt Count 245 MPV 9.4 Immature Gran % (Auto) 0.2 Neut % (Auto) 64.0 Lymph % (Auto) 28.1 [place] % (Auto) 5.9 Eos % (Auto) 1.0 Baso % (Auto) 0.8 Immature Gran # (Auto) 0.01 Neut # (Auto) 3.23 Lymph # (Auto) 1.42 [place] # (Auto) 0.30 Eos # (Auto) 0.05 Baso # (Auto) 0.04 Sodium 141 Potassium 3.8 Chloride 107 Carbon Dioxide 28 Anion Gap 6.0 BUN 10 Creatinine 0.64 Est Cr Clr Drug Dosing 124.4 Est GFR ( Amer) 122.3 Est GFR (Non-Af Amer) 105.5 BUN/Creatinine Ratio 15.4 Glucose 107 H Calcium 8.7 Total Bilirubin 0.2 AST 14 L ALT 21 Alkaline Phosphatase 152 H Total Protein 7.3 Albumin 3.3 L Globulin 4.0 Albumin/Globulin Ratio 0.8 L TSH 1.890 Urine Color Urine Appearance Urine pH Ur Specific [place] Urine Protein Urine Glucose (UA) Urine Ketones Urine Blood Urine Nitrite Urine Bilirubin Urine Urobilinogen Ur Leukocyte Esterase POC Ur Test Salicylates < 1.7 L Urine Opiates Screen Ur Methadone, Qual Acetaminophen < 2 L Urine Barbiturates Ur Phencyclidine (PCP) U Amphetamin/Meth Scrn MDMA (Ecstasy) Screen U Benzodiazepines Scrn Ur Cocaine Metabolite U Marijuana (THC) Screen Ethyl Alcohol mg/dL 08/12/19 08/12/19 08/12/19 16:06 17:50 17:50 WBC RBC Hgb Hct MCV MCH MCHC RDW Std Deviation RDW Coeff of Mark Plt Count MPV Immature Gran % (Auto) Neut % (Auto) Lymph % (Auto) [place] % (Auto) Eos % (Auto) Baso % (Auto) Immature Gran # (Auto) Neut # (Auto) Lymph # (Auto) [place] # (Auto) Eos # (Auto) Baso # (Auto) Sodium Potassium Chloride Carbon Dioxide Anion Gap BUN Creatinine Est Cr Clr Drug Dosing Est GFR ( Amer) Est GFR (Non-Af Amer) BUN/Creatinine Ratio Glucose Calcium Total Bilirubin AST ALT Alkaline Phosphatase Total Protein Albumin Globulin Albumin/Globulin Ratio TSH Urine Color Yellow Urine Appearance Clear Urine pH 8.5 H Ur Specific [place] 1.011 Urine Protein Negative Urine Glucose (UA) Negative Urine Ketones Negative Urine Blood Negative Urine Nitrite Negative Urine Bilirubin Negative Urine Urobilinogen Negative Ur Leukocyte Esterase Negative POC Ur Test Salicylates Urine Opiates Screen Neg Ur Methadone, Qual Neg Acetaminophen Urine Barbiturates Neg Ur Phencyclidine (PCP) Neg U Amphetamin/Meth Scrn Neg MDMA (Ecstasy) Screen Neg U Benzodiazepines Scrn Neg Ur Cocaine Metabolite Neg U Marijuana (THC) Screen Neg Ethyl Alcohol mg/dL < 3.0 08/12/19 22:02 WBC RBC Hgb Hct MCV MCH MCHC RDW Std Deviation RDW Coeff of Mark Plt Count MPV Immature Gran % (Auto) Neut % (Auto) Lymph % (Auto) [place] % (Auto) Eos % (Auto) Baso % (Auto) Immature Gran # (Auto) Neut # (Auto) Lymph # (Auto) [place] # (Auto) Eos # (Auto) Baso # (Auto) Sodium Potassium Chloride Carbon Dioxide Anion Gap BUN Creatinine Est Cr Clr Drug Dosing Est GFR ( Amer) Est GFR (Non-Af Amer) BUN/Creatinine Ratio Glucose Calcium Total Bilirubin AST ALT Alkaline Phosphatase Total Protein Albumin Globulin Albumin/Globulin Ratio TSH Urine Color Urine Appearance Urine pH Ur Specific [place] Urine Protein Urine Glucose (UA) Urine Ketones Urine Blood Urine Nitrite Urine Bilirubin Urine Urobilinogen Ur Leukocyte Esterase POC Ur Test NEG Salicylates Urine Opiates Screen Ur Methadone, Qual Acetaminophen Urine Barbiturates Ur Phencyclidine (PCP) U Amphetamin/Meth Scrn MDMA (Ecstasy) Screen U Benzodiazepines Scrn Ur Cocaine Metabolite U Marijuana (THC) Screen Ethyl Alcohol mg/dL Current Inpatient Medications Current Inpatient Medications: Current Inpatient Medications Acetaminophen (Tylenol) 650 mg PO Q4H PRN PRN Reason: Headache or Minor Fever Stop: 09/11/19 21:42 Al Hydrox/Mg Hydrox/Simethicone (Maalox) 30 ml PO Q4H PRN PRN Reason: GI Upset Stop: 09/11/19 21:42 Bismuth Subsalicylate (Kaopectate) 15 ml PO PRN PRN PRN Reason: Loose Stool Stop: 09/11/19 21:42 Bupropion HCl (Wellbutrin-Xl) 300 mg PO DAILY MARTY Stop: 09/13/19 08:59 Hydroxyzine HCl (Vistaril) 50 mg PO HSZ PRN PRN Reason: Insomnia Stop: 09/11/19 21:42 Hydroxyzine HCl (Vistaril) 25 mg PO Q4H PRN PRN Reason: Anxiety Stop: 09/11/19 21:42 Lamotrigine (Lamictal) 150 mg PO HS [facility] Stop: 09/11/19 22:59 Last Admin: 08/13/19 00:01 Dose: Not Given Documented by: Levothyroxine Sodium (Synthroid) 125 mcg PO DAILYBB [facility] Stop: 09/12/19 07:59 Last Admin: 08/13/19 09:24 Dose: 125 mcg Documented by: Liothyronine Sodium (Cytomel) 5 mcg PO DAILYBB [facility] Stop: 09/12/19 06:29 Last Admin: 08/13/19 09:24 Dose: 5 mcg Documented by: Loratadine (Claritin) 10 mg PO HS PRN PRN Reason: ALLERGIES Stop: 09/11/19 22:30 Losartan Potassium (Cozaar) 75 mg PO DAILY [facility] Stop: 09/12/19 08:59 Last Admin: 08/13/19 09:24 Dose: 75 mg Documented by: Magnesium Hydroxide (Milk Of Magnesia) 30 ml PO DAILY PRN PRN Reason: Constipation Stop: 09/11/19 21:42 Meclizine HCl (Antivert) 25 mg PO TID PRN PRN Reason: DIZZY Stop: 09/11/19 22:28 Multivitamins/Folic Acid/Vitamin C (Flintstones Complete Chew Tab) 1 tab PO DAILY [facility] Stop: 09/12/19 08:59 Last Admin: 08/13/19 09:24 Dose: 1 tab Documented by: Multivitamins/Minerals (Caltrate Plus) 1 tab PO BID [facility] Stop: 09/12/19 08:59 Last Admin: 08/13/19 09:24 Dose: 1 tab Documented by: Sodium Chloride ([place] Nasal) 1 - 2 sprays NA PRN PRN PRN Reason: Nasal Dryness/Congestion Stop: 09/11/19 21:42 Venlafaxine HCl (Effexor) 150 mg PO TID [facility] Stop: 09/11/19 22:29 Last Admin: 08/13/19 09:24 Dose: 150 mg Documented by: Zolpidem Tartrate (Ambien) 10 mg PO HS PRN PRN Reason: Sleep Stop: 09/12/19 11:04
[2019-08-14] MEDS: LIOTHYRONINE SODIUM 5 MCG TAB PO SCH (08:07)
[2019-08-14] MEDS: LEVOTHYROXINE SODIUM 125 MCG TABLET PO SCH (08:07)
[2019-08-14] MEDS: CALCIUM 600MG + VIT D 400 IU TAB PO SCH ×2 (08:07→21:13)
[2019-08-14] MEDS: VENLAFAXINE HCL 37.5 MG TAB PO SCH ×3 (08:07→21:14)
[2019-08-14] MEDS: LOSARTAN POTASSIUM 25 MG TAB PO SCH (08:07)
[2019-08-14] MEDS: FLINTSTONES COMPLETE CHEWABLE TAB PO SCH (08:08)
[2019-08-14] MEDS ORDERED: BuPROPion XL 300 MG TABCR PO SCH (09:00)
[2019-08-14] MEDS ORDERED: ZOLPIDEM TARTRATE 5 MG TAB PO PRN (16:48)
[2019-08-14] MEDS ORDERED: buPROPion HCl 100 MG TABLET PO SCH (17:45)
[2019-08-14] MEDS ORDERED: VENLAFAXINE HCL 37.5 MG TAB PO SCH (17:45)
[2019-08-14 18:16] LABS: Folate (Folic Acid) > 24.00 ng/ml (>5.38); Vitamin B12 598 pg/ml (211-911)
--- NOTE | 2019-08-14 19:32 | Psychiatric Progress Note ---
Date of Service August 14, 2019 Impression / Recommendations Impression This a 49-year-old woman was admitted to the [facility] unit after presenting with suicidal thoughts with a plan to overdose on available medications. She reports that she has suffered from symptoms of depression since childhood, and while these symptoms have waxed and waned over the years, her depressive symptoms have been worse in the past 1 year, and have increased significantly in the past 2 months. She does not identify any specific precipitating factor, but notes that she and her of 7 years have ongoing issues related to their varied styles of communication. Also, the patient says that she finds it very hard to tell her that she would prefer to have a certain amount of time alone, given the fact that her prefers to spend most of their time together. However, I do not believe that this difficulty explains the patient's current emotional distress. Instead, I believe that her chronic underlying depression, complicated by very poor sleep (the patient slept 4.75 h ours last night, awoke frequently, and tells me that she slept better last night than she has "in months"), and a set of work-related stressors having to do with her difficulty concentrating and focusing and, therefore, need to work after hours in order to keep up with the demands are at the core of the problem. We talked about strategies for improving her sleep. She reports that her outpatient psychiatrist, Wisam Noble, who prescribed trazodone (dose unspecified) but the patient said that she may have slept better with trazodone, but had excess sedation during the day and did not take it. She also tells us that when bupropion extended release was added to her medication regimen (which has included venlafaxine 150 mg 3 times daily and lamotrigine 150 mg at bedtime) she notices a significant improvement in her ability to concentrate and complete tasks without excessive fatigue. However, this benefit seems to have plateaued or dissipated, we raised wellbutrin to 300mg with now converting to ir form to minimize risk of poor absoprtion given s/p gasdtric bypass. (1) Depression: 08/13/19 -Patient reports she suffers from chronic, recurrent depression, worse for the past year and particularly for the past 2 months. Bupropion was added, evidently as an adjunct, approximately 2 months ago which seems to correspond with the patient's report that her symptoms have worsened in the past 2 months. However, the patient says that she feels pretty certain that the worsening depression has more to do with poor sleep and situational difficulties and that, in fact, she felt that bupropion was helpful and that it allowed her to concentrate and focus better. -We are increasing her dose of bupropion extended release from 150 mg a day t o a dose of 300 mg a day. We will also continue venlafaxine 150 mg 3 times daily and lamotrigine 150 mg daily. 08/14 converted wellbutrin to ir form wihh 10mg tid with last dose at dinner, given s/p gastric bypass. checking vit b12 level and folic acid given s/p gastric bypas pt takes vit d and calcium routinely (2) Suicidal ideation: 08/13 -Patient reports chronic suicidal thoughts, beginning in childhood, although she also notes that she has never made an actual suicide attempt. There is a history of intentional self-injurious behaviors, such as self cutting. Although these behaviors reportedly had stopped several years ago, recently the patient became alarmed when she began once again to hit her head deliberately against a wall as a way of relieving stress. She expresses a concern that she will accidentally more seriously injure herself. -The patient acknowledges that she was having thoughts of taking an overdose of medications. The patient also reports that the context for this was the fact that she was feeling distressed by the demands of work, the fact that she is having to work extra hours and is taking her a particularly long time to complete tasks because of poor concentration. (The patient does not have a history of ADHD symptoms.) -The patient has been admitted to the [facility] unit where she is on suicide precautions and is being encouraged to participate in individual, group and activity therapies as a way of developing improved coping strategies. We also plan to actively involve the patient's and the treatment (3) Obstructive sleep apnea: 08/13 -Patient is using her CPAP on the unit. She notes that there has been no change in her CPAP settings, and that sleep difficulties have always been an issue for herboth initial and intermittent insomnia. -We are adding Ambien 10 mg at bedtime to the patient's medication regimen. Material risks, including but not limited to the potential for habituation, sleepwalking, amnesia, fall risk, and exacerbation of sleep apnea were reviewed with the patient and she indicated understanding. There is a risk in this patient associated with using Ambien, but her consistent poor sleep seems to clearly be contributing to her level of depression and distress. (4) Hypertension: 08/13 -We will prescribe losartan for hypertension, and we will continue to monitor. Currently, the patient's blood pressure remains elevated. (5) Hypothyroidism: 08/13 -The patient's TSH at admission was 1.89. She reports that her hypothyroidism is being followed on an outpatient basis. 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 Review of Systems Sleep Information Total Hours of Sleep: 6.5 Meal Information Percent Meal Consumed - Breakfast: 100 Percent Meal Consumed - Lunch: 100 Percent Meal Consumed - Dinner: 90 Subjective Subjective Patient was seen & assessed and interval progress reviewed with nursing and social work. pt shared how was anxious today carol about her family meeting, but settled down in the meeting and been calmer since it occurred, pt found the meeting helpful. She is s/p gastric bypass and does not take folate or vit b12, she thinks recent testing for b12 was normal but not certain if above 350. she does not think folate was checked. her wellbutrin has been xl form and was raised to 300mg a day since admission been on 150mg a day for a few months now. of note pt takes above normal dosing of effexor ir 150mg tid for extended time. pt denied SI today, denied urges to bang self today. mood is less depressed today. she has issues with concentration. she can have some peripheral neuropathy symptoms. she was wary to take the ambien last night but did have middle insomnia last night. Physical Exam Psychiatric Orientation: alert, oriented x 3 and cooperative Apperance: appropriately dressed and appropriately groomed Eye Contact: + fair eye contact Motor Behavior: steady gait and station Speech: normal rate/rhythm/volume of speech affect less depressed mood was anxious but improved past few hours after family meeting meeeting Thought Process: linear/logical thought process and clear/coherent thought process Thought Content: reality based without delusions Suicidal Thoughts: denies suicidal thoughts Homicidal Thoughts: denies homicidal thoughts Hallucinations: no auditory hallucinations Cognition: recent memory grossly intact, remote memory grossly intact, attention grossly intact and language grossly intact Estimated Intelligence: + above average estimated intelligence Insight: good insight Judgement: good judgement Vital Signs (Past 24 Hours) Last Vital Signs Temp 36.7 C 08/14/19 06:40 Pulse 94 H 08/14/19 16:04 Resp 18 08/14/19 16:04 BP 132/91 08/14/19 16:04 Pulse Ox 96 08/12/19 22:15 Results & Data ([facility]) Laboratory Results Laboratory Results - last 24 hr 08/14/19 17:18 Vitamin B12 598 Folate > 24.00 Current Inpatient Medications Current Inpatient Medications: Current Inpatient Medications Acetaminophen (Tylenol) 650 mg PO Q4H PRN PRN Reason: Headache or Minor Fever Stop: 09/11/19 21:42 Last Admin: 08/14/19 08:09 Dose: 650 mg Documented by: Al Hydrox/Mg Hydrox/Simethicone (Maalox) 30 ml PO Q4H PRN PRN Reason: GI Upset Stop: 09/11/19 21:42 Bismuth Subsalicylate (Kaopectate) 15 ml PO PRN PRN PRN Reason: Loose Stool Stop: 09/11/19 21:42 Bupropion HCl (Wellbutrin) 100 mg PO TIDM MARTY Stop: 09/14/19 08:59 Hydroxyzine HCl (Vistaril) 50 mg PO HSZ PRN PRN Reason: Insomnia Stop: 09/11/19 21:42 Hydroxyzine HCl (Vistaril) 25 mg PO Q4H PRN PRN Reason: Anxiety Stop: 09/11/19 21:42 Lamotrigine (Lamictal) 150 mg PO HS MARTY Stop: 09/11/19 22:59 Last Admin: 08/13/19 21:09 Dose: 150 mg Documented by: Levothyroxine Sodium (Synthroid) 125 mcg PO DAILYBB MARTY Stop: 09/12/19 07:59 Last Admin: 08/14/19 08:07 Dose: 125 mcg Documented by: Liothyronine Sodium (Cytomel) 5 mcg PO DAILYBB MARTY Stop: 09/12/19 06:29 Last Admin: 08/14/19 08:07 Dose: 5 mcg Documented by: Loratadine (Claritin) 10 mg PO HS PRN PRN Reason: ALLERGIES Stop: 09/11/19 22:30 Losartan Potassium (Cozaar) 75 mg PO DAILY MARTY Stop: 09/12/19 08:59 Last Admin: 08/14/19 08:07 Dose: 75 mg Documented by: Magnesium Hydroxide (Milk Of Magnesia) 30 ml PO DAILY PRN PRN Reason: Constipation Stop: 09/11/19 21:42 Meclizine HCl (Antivert) 25 mg PO TID PRN PRN Reason: DIZZY Stop: 09/11/19 22:28 Multivitamins/Folic Acid/Vitamin C (Flintstones Complete Chew Tab) 1 tab PO DAILY MARTY Stop: 09/12/19 08:59 Last Admin: 08/14/19 08:08 Dose: 1 tab Documented by: Multivitamins/Minerals (Caltrate Plus) 1 tab PO BID MARTY Stop: 09/12/19 08:59 Last Admin: 08/14/19 08:07 Dose: 1 tab Documented by: Sodium Chloride (Levy Nasal) 1 - 2 sprays NA PRN PRN PRN Reason: Nasal Dryness/Congestion Stop: 09/11/19 21:42 Venlafaxine HCl (Effexor) 150 mg PO TIDM MARTY Stop: 09/14/19 08:59 Zolpidem Tartrate (Ambien) 5 mg PO HS PRN PRN Reason: Sleep Stop: 09/12/19 11:04 Mental Health & Subst Abuse Tx Psychiatrist Name of Psychiatrist: Dr. Lora Therapist Name of Therapist: Diann Burger Date of Therapist Appointment: 08/17/19 Post Discharge Appointments Primary Care Physician Name Of Family Doctor: Jessie Nicole (1) Depression Depression Type: unspecified Qualified Code(s): F32.9 - Major depressive disorder, single episode, unspecified
[2019-08-14] MEDS: lamoTRIgine 100 MG TAB PO SCH (21:13)
[2019-08-14] MEDS: SODIUM CHLORIDE 0.65% NA SOLN 45 ML (OCEAN) PRN (21:58)
[2019-08-15] MEDS: LOSARTAN POTASSIUM 25 MG TAB PO SCH (08:34)
[2019-08-15] MEDS: VENLAFAXINE HCL 37.5 MG TAB PO SCH ×3 (08:34→17:39)
[2019-08-15] MEDS: CALCIUM 600MG + VIT D 400 IU TAB PO SCH ×2 (08:34→21:23)
[2019-08-15] MEDS: FLINTSTONES COMPLETE CHEWABLE TAB PO SCH (08:34)
[2019-08-15] MEDS: LEVOTHYROXINE SODIUM 125 MCG TABLET PO SCH (08:34)
[2019-08-15] MEDS: LIOTHYRONINE SODIUM 5 MCG TAB PO SCH (08:34)
[2019-08-15] MEDS: buPROPion HCl 100 MG TABLET PO SCH ×3 (08:35→17:41)
[2019-08-15] MEDS: SODIUM CHLORIDE 0.65% NA SOLN 45 ML (OCEAN) PRN (09:22)
[2019-08-15] MEDS ORDERED: ZOLPIDEM TARTRATE 5 MG TAB PO PRN (14:31)
--- NOTE | 2019-08-15 17:44 | Psychiatric Progress Note ---
Date of Service August 15, 2019 Impression / Recommendations Impression This a 49-year-old woman was admitted to the [facility] behavioral [facility] unit after presenting with suicidal thoughts with a plan to overdose on available medications. She reports that she has suffered from symptoms of depression since childhood, and while these symptoms have waxed and waned over the years, her depressive symptoms have been worse in the past 1 year, and have increased significantly in the past 2 months. She does not identify any specific precipitating factor, but notes that she and her of 7 years have ongoing issues related to their varied styles of communication. Also, the patient says that she finds it very hard to tell her that she would prefer to have a certain amount of time alone, given the fact that her prefers to spend most of their time together. However, I do not believe that this difficulty explains the patient's current emotional distress. Instead, I believe that her chronic underlying depression, complicated by very poor sleep (the patient slept 4.75 h ours last night, awoke frequently, and tells me that she slept better last night than she has "in months"), and a set of work-related stressors having to do with her difficulty concentrating and focusing and, therefore, need to work after hours in order to keep up with the demands are at the core of the problem. We talked about strategies for improving her sleep. She reports that her outpatient psychiatrist, Wisam Noble, who prescribed trazodone (dose unspecified) but the patient said that she may have slept better with trazodone, but had excess sedation during the day and did not take it. She also tells us that when bupropion extended release was added to her medication regimen (which has included venlafaxine 150 mg 3 times daily and lamotrigine 150 mg at bedtime) she notices a significant improvement in her ability to concentrate and complete tasks without excessive fatigue. However, this benefit seems to have plateaued or dissipated, we raised wellbutrin to 300mg with now converting to ir form to minimize risk of poor absoprtion given s/p gastric bypass. pt seeking to address how her fears impact her from asserting self or at times knowing own preferences. wanting to address and adjsut dynamics in her marriage and leaning to adding couples therapy appts as outpt (1) Depression: 08/13/19 -Patient reports she suffers from chronic, recurrent depression, worse for the past year and particularly for the past 2 months. Bupropion was added, evidently as an adjunct, approximately 2 months ago which seems to correspond with the patient's report that her symptoms have worsened in the past 2 months. However, the patient says that she feels pretty certain that the worsening depression has more to do with poor sleep and situational difficulties and that, in fact, she felt that bupropion was helpful and that it allowed her to concentrate and focus better. -We are increasing her dose of bupropion extended release from 150 mg a day to a dose of 300 mg a day. We will also continue venlafaxine 150 mg 3 times daily and lamotrigine 150 mg daily. 08/14 converted wellbutrin to ir form wihh 10mg tid with last dose at dinner, given s/p gastric bypass. checking vit b12 level and folic acid given s/p gastric bypas pt takes vit d and calcium routinely 08/15 addressing assertiveness and struggles to do so tied to above addressing ptoential of adding couples therapy as outpatient and ways to work on asserting self in manner that would feel safe for her and can add to her sense of safety (2) Suicidal ideation: 08/13 -Patient reports chronic suicidal thoughts, beginning in childhood, although she also notes that she has never made an actual suicide attempt. There is a history of intentional self-injurious behaviors, such as self cutting. Although these behaviors reportedly had stopped several years ago, recently the patient became alarmed when she began once again to hit her head deliberately against a wall as a way of relieving stress. She expresses a concern that she will accidentally more seriously injure herself. -The patient acknowledges that she was having thoughts of taking an overdose of medications. The patient also reports that the context for this was the fact that she was feeling distressed by the demands of work, the fact that she is having to work extra hours and is taking her a particularly long time to complete tasks because of poor concentration. (The patient does not have a history of ADHD symptoms.) -The patient has been admitted to the [facility] behavioral health unit where she is on suicide precautions and is being encouraged to participate in individual, group and activity therapies as a way of developing improved coping strategies. We also plan to actively involve the patient's and the treatment (3) Obstructive sleep apnea: 08/13 -Patient is using her CPAP on the unit. She notes that there has been no change in her CPAP settings, and that sleep difficulties have always been an issue for herboth initial and intermittent insomnia. -We are adding Ambien 10 mg at bedtime to the patient's medication regimen. Material risks, including but not limited to the potential for habituation, sleepwalking, amnesia, fall risk, and exacerbation of sleep apnea were reviewed with the patient and she indicated understanding. There is a risk in this patient associated with using Ambien, but her consistent poor sleep seems to clearly be contributing to her level of depression and distress. (4) Hypertension: 08/13 -We will prescribe losartan for hypertension, and we will continue to monitor. Currently, the patient's blood pressure remains elevated. (5) Hypothyroidism: 08/13 -The patient's TSH at admission was 1.89. She reports that her hypothyroidism is being followed on an outpatient basis. 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 pt seeking to make some changes in how interacts in her relationship and in her fears of asserting herself. shared about how the family meeting helped her with this but makes her anxious. takes time for her to process her thoughts and her wants/desires/interests and can respond before pt comes up with her own thoughts. However pt also ruminates and focuses more on analyzing how others might react to her and her own judgments and fears and second guessing that then prevents her from asserting self or even sometimes being aware of her actual preferences. Pt finds it too scary to assert herself as fearful of others reactions. Pt considering couples therapy and thinking about relooking that at with after nad her found the family meeting helpful and positive for them took Ambien 5mg last night and sleep improved some but some milder middle insomnia and pt wondering about trying 10mg Hs dose, vit b12 and folic acid fully nl, tolerating switch to ir form of Wellbutrin to date. denied si or hi Physical Exam Psychiatric Orientation: alert, oriented x 3 and cooperative Apperance: appropriately dressed and appropriately groomed Eye Contact: good eye contact Motor Behavior: steady gait and station Speech: normal rate/rhythm/volume of speech anxious affect Mood: + anxious mood Thought Process: linear/logical thought process and clear/coherent thought process Thought Content: + cognitive distortions and reality based without delusions Suicidal Thoughts: denies suicidal thoughts Homicidal Thoughts: denies homicidal thoughts Hallucinations: no auditory hallucinations Cognition: recent memory grossly intact, remote memory grossly intact, attention grossly intact and language grossly intact Estimated Intelligence: + above average estimated intelligence Insight: good insight Judgement: good judgement Vital Signs (Past 24 Hours) Last Vital Signs Temp 36.6 C 08/15/19 06:39 Pulse 87 08/15/19 06:40 Resp 20 08/15/19 06:39 BP 150/99 H 08/15/19 06:40 Pulse Ox 96 08/12/19 22:15 Results & Data ([facility]) Laboratory Results Laboratory Results - last 24 hr 08/14/19 17:18 Vitamin B12 598 Folate > 24.00 Current Inpatient Medications Current Inpatient Medications: Current Inpatient Medications Acetaminophen (Tylenol) 650 mg PO Q4H PRN PRN Reason: Headache or Minor Fever Stop: 09/11/19 21:42 Last Admin: 08/14/19 08:09 Dose: 650 mg Documented by: Al Hydrox/Mg Hydrox/Simethicone (Maalox) 30 ml PO Q4H PRN PRN Reason: GI Upset Stop: 09/11/19 21:42 Bismuth Subsalicylate (Kaopectate) 15 ml PO PRN PRN PRN Reason: Loose Stool Stop: 09/11/19 21:42 Bupropion HCl (Wellbutrin) 100 mg PO TIDM MARTY Stop: 09/14/19 08:59 Last Admin: 08/15/19 12:46 Dose: 100 mg Documented by: Hydroxyzine HCl (Vistaril) 50 mg PO HSZ PRN PRN Reason: Insomnia Stop: 09/11/19 21:42 Hydroxyzine HCl (Vistaril) 25 mg PO Q4H PRN PRN Reason: Anxiety Stop: 09/11/19 21:42 Lamotrigine (Lamictal) 150 mg PO HS MARTY Stop: 09/11/19 22:59 Last Admin: 08/14/19 21:13 Dose: 150 mg Documented by: Levothyroxine Sodium (Synthroid) 125 mcg PO DAILYBB [facility] Stop: 09/12/19 07:59 Last Admin: 08/15/19 08:34 Dose: 125 mcg Documented by: Liothyronine Sodium (Cytomel) 5 mcg PO DAILYBB [facility] Stop: 09/12/19 06:29 Last Admin: 08/15/19 08:34 Dose: 5 mcg Documented by: Loratadine (Claritin) 10 mg PO HS PRN PRN Reason: ALLERGIES Stop: 09/11/19 22:30 Losartan Potassium (Cozaar) 75 mg PO DAILY [facility] Stop: 09/12/19 08:59 Last Admin: 08/15/19 08:34 Dose: 75 mg Documented by: Magnesium Hydroxide (Milk Of Magnesia) 30 ml PO DAILY PRN PRN Reason: Constipation Stop: 09/11/19 21:42 Meclizine HCl (Antivert) 25 mg PO TID PRN PRN Reason: DIZZY Stop: 09/11/19 22:28 Multivitamins/Folic Acid/Vitamin C (Flintstones Complete Chew Tab) 1 tab PO DAILY [facility] Stop: 09/12/19 08:59 Last Admin: 08/15/19 08:34 Dose: 1 tab Documented by: Multivitamins/Minerals (Caltrate Plus) 1 tab PO BID MARTY Stop: 09/12/19 08:59 Last Admin: 08/15/19 08:34 Dose: 1 tab Documented by: Sodium Chloride (Coffeen Nasal) 1 - 2 sprays NA PRN PRN PRN Reason: Nasal Dryness/Congestion Stop: 09/11/19 21:42 Last Admin: 08/15/19 09:22 Dose: 2 sprays Documented by: Venlafaxine HCl (Effexor) 150 mg PO TIDM [facility] Stop: 09/14/19 08:59 Last Admin: 08/15/19 12:46 Dose: 150 mg Documented by: Zolpidem Tartrate (Ambien) 10 mg PO HS PRN PRN Reason: Sleep Stop: 09/12/19 11:04 Mental Health & Subst Abuse Tx Psychiatrist Name of Psychiatrist: Dr. Lora Therapist Name of Therapist: Diann Burger Date of Therapist Appointment: 08/17/19 Post Discharge Appointments Primary Care Physician [facility] (1) Depression Depression Type: unspecified Qualified Code(s): F32.9 - Major depressive disorder, single episode, unspecified
[2019-08-15] MEDS: lamoTRIgine 100 MG TAB PO SCH (21:24)
[2019-08-15 21:53] VITALS: O2SAT 97
[2019-08-16] MEDS: LEVOTHYROXINE SODIUM 125 MCG TABLET PO SCH (08:08)
[2019-08-16] MEDS: LIOTHYRONINE SODIUM 5 MCG TAB PO SCH (08:08)
[2019-08-16] MEDS: LOSARTAN POTASSIUM 25 MG TAB PO SCH (08:27)
[2019-08-16] MEDS: CALCIUM 600MG + VIT D 400 IU TAB PO SCH ×2 (08:27→21:19)
[2019-08-16] MEDS: buPROPion HCl 100 MG TABLET PO SCH ×3 (08:28→17:51)
[2019-08-16] MEDS: VENLAFAXINE HCL 37.5 MG TAB PO SCH ×2 (08:28→12:32)
[2019-08-16] MEDS: FLINTSTONES COMPLETE CHEWABLE TAB PO SCH (08:28)
--- NOTE | 2019-08-16 08:55 | Psychiatric Progress Note ---
Date of Service August 16, 2019 Impression / Recommendations Impression 49-year-old female admitted voluntarily for inpatient psychiatric treatment on 08/12/2019 after presenting to the ED with suicidal ideation with plan to overdose on pain medications and inability to contract for safety outside of the inpatient setting. Pt reported a history of depressive symptoms since childhood, that have varied in severity over the years. She has also struggled with SIB chronically as well. Pt denies a specific trigger bringing on the suicidal ideation, but does admit that a large stressor is communication concerns within her 7-year marriage to her . On admission, patient's home d oses of venlafaxine IR 150mg TID and lamotrigine 150mg qHS were continued. Pt was started on zolpidem to target sleep difficulties. Bupropion XR was initially titrated to 300mg qAM, then adjusted to the sustained release form and divided TID with meals. Patient's history of gastric bypass surgery plays a large role in medication considerations. Pt has been encouraged to participate in group and recreational programming, with a specific focus on improving ability to advocate for her needs within her relationship. Pt did have a family meeting with her on 08/14 and they are open to couples counseling. Pt is planning to continue working with her outpatient therapist and psychiatrist. Pt has denied SI over the past several days, but remains concerned about maintaining these improvements once she is discharged. Pt is unable to contract for safety outside of the inpatient setting today, but is hopeful to work toward a discharge possibly tomorrow. Inpatient psychiatric treatment remains medically necessary at this time. This provider did receive a voicemail from Dr. Lora, patient's outpatient psychiatrist on 08/13/2019. Patient had met with attending psychiatrist and t reatment plan had been developed prior to receiving this information; however, considerations are as follows: Reporting mood decompensation since Summer 2017 with increased SIB more recently. It has been suspected on an outpatient basis that relationship stressor had been a significant contributing factor to this decompensation. Aripiprazole had been considered for additional augmentation; however, there is concern for associated metabolic symptoms. Cross-taper to Trintellix was also mentioned due to reported inattention and cognitive clouding during outpatient appointments. Patient is status post gastric bypass surgery, which is the reason for presenting dosing schedule for venlafaxine IR. They have been checking venlafaxine drug levels periodically on an outpatient basis. He did verbalize concern regarding persistently elevated BP - which has been monitored in the psychiatric setting and managed by PCP. (1) Suicidal ideation: 08/13 -Patient reports chronic suicidal thoughts, beginning in childhood, although she also notes that she has never made an actual suicide attempt. There is a history of intentional self-injurious behaviors, such as self cutting. Although these behaviors reportedly had stopped several years ago, recently the patient became alarmed when she began once again to hit her head deliberately against a wall as a way of relieving stress. She expresses a concern that she will accidentally more seriously injure herself. -The patient acknowledges that she was having thoughts of taking an overdose of medications. The patient also reports that the context for this was the fact that she was feeling distressed by the demands of work, the fact that she is having to work extra hours and is taking her a particularly long time to complete tasks because of poor concentration. (The patient does not have a history of ADHD symptoms.) -The patient has been admitted to the [facility] behavioral health unit where she is on suicide precautions and is being encouraged to participate in individual, group and activity therapies as a way of developing improved coping strategies. We also plan to actively involve the patient's and the treatment 08/16 - Pt denies active SI today - She does report ongoing SIB urges, even here on the unit to bang her head against the wall - denies acting on these urges during her admission (2) Depression: 08/13/19 -Patient reports she suffers from chronic, recurrent depression, worse for the past year and particularly for the past 2 months. Bupropion was added, evidently as an adjunct, approximately 2 months ago which seems to correspond with the patient's report that her symptoms have worsened in the past 2 months. However, the patient says that she feels pretty certain that the worsening depression has more to do with poor sleep and situational difficulties and that, in fact, she felt that bupropion was helpful and that it allowed her to concentrate and focus better. -We are increasing her dose of bupropion extended release from 150 mg a day to a dose of 300 mg a day. We will also continue venlafaxine 150 mg 3 times daily and lamotrigine 150 mg daily. 08/14 converted wellbutrin to ir form wihh 10mg tid with last dose at dinner, given s/p gastric bypass. checking vit b12 level and folic acid given s/p gastric bypas pt takes vit d and calcium routinely 08/15 addressing assertiveness and struggles to do so tied to above addressing ptoential of adding couples therapy as outpatient and ways to work on asserting self in manner that would feel safe for her and can add to her sense of safety 08/16 - Continue current medication regimen - patient reports perceived improvement in mood and reduced anxiety in the last several days - Will provide resources for couples counseling, as relationship concerns remain a predominant stressor - Confirm outpatient appointments with therapist and psychiatrist (3) Obstructive sleep apnea: 08/13 -Patient is using her CPAP on the unit. She notes that there has been no change in her CPAP settings, and that sleep difficulties have always been an issue for herboth initial and intermittent insomnia. -We are adding Ambien 10 mg at bedtime to the patient's medication regimen. Material risks, including but not limited to the potential for habituation, sleepwalking, amnesia, fall risk, and exacerbation of sleep apnea were reviewed with the patient and she indicated understanding. There is a risk in this patient associated with using Ambien, but her consistent poor sleep seems to clearly be contributing to her level of depression and distress. (4) Hypertension: 08/13 -We will prescribe losartan for hypertension, and we will continue to monitor. Currently, the patient's blood pressure remains elevated. 08/16 - Reviewed ongoing elevated blood pressure readings with the patient - Advise staff consistently utilize the large blood pressure cuff for most accurate readings - Pt agreeable with increasing losartan to 50mg BID - risks, benefits, and potential side effects reviewed, with patient verbalizing understanding and remains agreeable to adjustment (5) Hypothyroidism: 08/13 -The patient's TSH at admission was 1.89. She reports that her hypothyroidism is being followed on an outpatient basis. 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 She has a history of recurrent depression and chronic suicidal thoughts. She was admitted on 08/12/19 21:43 on a 201 voluntary agreement because of suicidal ideation with a plan to overdose on a supply of existing medications. Chief Complaint "The weekend went well, I think." Review of Systems Notes Constitutional: reports ongoing difficult with appropriate duration of sleep, but admits sleep is more restful Cardiovascular: denied Respiratory: denied Gastrointestinal: denied Neurological: denied Psychiatric: denies symptoms other than stated above Total of at least 10 systems reviewed, pertinent positives as above and in HPI. Sleep Information Total Hours of Sleep: 5.25 Sleep Comments: 1:1 while cpap in use Meal Information Percent Meal Consumed - Breakfast: 50 Percent Meal Consumed - Lunch: 75 Percent Meal Consumed - Dinner: 100 Subjective Subjective Patient was seen & assessed and interval progress reviewed with treatment team. Staff report the patient has continued to participate in group programming. She did have a meeting with her this weekend, and both are agreeable with couple's counseling. Pt had denied active SI through the weekend, but remains concerned about her limited assertiveness and ability to advocate for her needs once she is discharged. Pt was seen today to assess progress since admission. Pt states she has been doing well, and is noticing some improvement in her condition. She states, "I'm working on a lot of different things, but as far as the medications I think we're on the right track." Pt denies side effects related to various medication adjustments. Pt's perception is that her anxiety is somewhat reduced at this point in time. Pt does feel as though the addition of the zolpidem has been helpful to promote more restful sleep, but she is not sure she is sleeping for a longer duration when compared to pre-admission. Pt states that she is hopeful that couple's counseling goes well, as she feeling it will be beneficial for her marriage. Pt denies suicidal ideation, but does admit to ongoing urges to self-harm by banging her head against the wall. Pt states she has not actively engaged in this behavior since admission. Pt denies other needs or concerns at this time. Physical Exam Psychiatric Orientation: alert, oriented x 3 and cooperative Apperance: appropriately dressed (casually, wearing sweatshirt and sweatpants), appropriately groomed and appeared stated age Eye Contact: good eye contact Motor Behavior: steady gait and station and no abnormal motor movements Speech: normal rate/rhythm/volume of speech Affect: + depressed affect (appearing subdued) Mood: + depressed mood (but does admit to perceived improvement since admission) and + anxious mood Thought Process: goal directed thought process, clear/coherent thought process and thought association intact Thought Content: reality based without delusions; no hopelessness Suicidal Thoughts: denies suicidal thoughts and denies suicidal intent Homicidal Thoughts: denies homicidal thoughts Hallucinations: no auditory hallucinations and no visual hallucinations Cognition: attention grossly intact and language grossly intact Insight: + fair insight Judgement: + fair judgement Vital Signs (Past 24 Hours) Last Vital Signs Temp 36.7 C 08/16/19 06:43 Pulse 86 08/16/19 08:33 Resp 18 08/16/19 06:43 BP 153/95 H 08/16/19 08:33 Pulse Ox 97 08/15/19 21:52 [facility] Current Inpatient Medications Current Inpatient Medications: Current Inpatient Medications Acetaminophen (Tylenol) 650 mg PO Q4H PRN PRN Reason: Headache or Minor Fever Stop: 09/11/19 21:42 Last Admin: 08/14/19 08:09 Dose: 650 mg Documented by: Al Hydrox/Mg Hydrox/Simethicone (Maalox) 30 ml PO Q4H PRN PRN Reason: GI Upset Stop: 09/11/19 21:42 Bismuth Subsalicylate (Kaopectate) 15 ml PO PRN PRN PRN Reason: Loose Stool Stop: 09/11/19 21:42 Bupropion HCl (Wellbutrin) 100 mg PO TIDM MARTY Stop: 09/14/19 08:59 Last Admin: 08/16/19 08:28 Dose: 100 mg Documented by: Hydroxyzine HCl (Vistaril) 50 mg PO HSZ PRN PRN Reason: Insomnia Stop: 09/11/19 21:42 Hydroxyzine HCl (Vistaril) 25 mg PO Q4H PRN PRN Reason: Anxiety Stop: 09/11/19 21:42 Lamotrigine (Lamictal) 150 mg PO HS MARTY Stop: 09/11/19 22:59 Last Admin: 08/15/19 21:24 Dose: 150 mg Documented by: Levothyroxine Sodium (Synthroid) 125 mcg PO DAILYBB [facility] Stop: 09/12/19 07:59 Last Admin: 08/16/19 08:08 Dose: 125 mcg Documented by: Liothyronine Sodium (Cytomel) 5 mcg PO DAILYBB MARTY Stop: 09/12/19 06:29 Last Admin: 08/16/19 08:08 Dose: 5 mcg Documented by: Loratadine (Claritin) 10 mg PO HS PRN PRN Reason: ALLERGIES Stop: 09/11/19 22:30 Losartan Potassium (Cozaar) 75 mg PO DAILY MARTY Stop: 09/12/19 08:59 Last Admin: 08/16/19 08:27 Dose: 75 mg Documented by: Magnesium Hydroxide (Milk Of Magnesia) 30 ml PO DAILY PRN PRN Reason: Constipation Stop: 09/11/19 21:42 Meclizine HCl (Antivert) 25 mg PO TID PRN PRN Reason: DIZZY Stop: 09/11/19 22:28 Multivitamins/Folic Acid/Vitamin C (Flintstones Complete Chew Tab) 1 tab PO DAILY MARTY Stop: 09/12/19 08:59 Last Admin: 08/16/19 08:28 Dose: 1 tab Documented by: Multivitamins/Minerals (Caltrate Plus) 1 tab PO BID MARTY Stop: 09/12/19 08:59 Last Admin: 08/16/19 08:27 Dose: 1 tab Documented by: Sodium Chloride (Tucker Nasal) 1 - 2 sprays NA PRN PRN PRN Reason: Nasal Dryness/Congestion Stop: 09/11/19 21:42 Last Admin: 08/15/19 09:22 Dose: 2 sprays Documented by: Venlafaxine HCl (Effexor) 150 mg PO TIDM MARTY Stop: 09/14/19 08:59 Last Admin: 08/16/19 08:28 Dose: 150 mg Documented by: Zolpidem Tartrate (Ambien) 10 mg PO HS PRN PRN Reason: Sleep Stop: 09/12/19 11:04 Last Admin: 08/15/19 22:49 Dose: 10 mg Documented by: Mental Health & Subst Abuse Tx Psychiatrist Name of Psychiatrist: Dr. Lora Therapist Name of Therapist: Diann Burger Date of Therapist Appointment: 08/17/19 Post Discharge Appointments Primary Care Physician Name Of Family Doctor: Jessie Nicole (1) Depression Depression Type: unspecified Qualified Code(s): F32.9 - Major depressive disorder, single episode, unspecified
[2019-08-16] MEDS: VENLAFAXINE HCL 50 MG TAB PO SCH (17:50)
[2019-08-16] MEDS: LOSARTAN POTASSIUM 50 MG TAB PO SCH (21:20)
[2019-08-16] MEDS: lamoTRIgine 100 MG TAB PO SCH (21:20)
[2019-08-17 06:30] VITALS: TEMP 97.7
[2019-08-17] MEDS: LIOTHYRONINE SODIUM 5 MCG TAB PO SCH (07:29)
[2019-08-17] MEDS: LEVOTHYROXINE SODIUM 125 MCG TABLET PO SCH (07:29)
[2019-08-17] MEDS: LOSARTAN POTASSIUM 50 MG TAB PO SCH (08:10)
[2019-08-17] MEDS: CALCIUM 600MG + VIT D 400 IU TAB PO SCH (08:10)
[2019-08-17] MEDS: VENLAFAXINE HCL 50 MG TAB PO SCH ×2 (08:10→12:39)
[2019-08-17] MEDS: buPROPion HCl 100 MG TABLET PO SCH ×2 (08:11→12:43)
[2019-08-17] MEDS: FLINTSTONES COMPLETE CHEWABLE TAB PO SCH (08:11)
--- NOTE | 2019-08-17 09:22 | Discharge Summary ---
Date of Service August 17, 2019 History of Present Illness The patient is a 49-year-old woman who was admitted through the emergency department yesterday after she presented and reported active suicidal thoughts that included taking an overdose of a supply of existing medications that she happened to have on hand. The patient reports that she has suffered from symptoms of depression since childhood, and these symptoms have gotten progressively worse over the course of the past year and, particularly within the past 2 months. Symptoms of depression include depressed mood, difficulty concentrating, anhedonia, initial and intermittent insomnia, anergia and apathy. Although the patient does not necessarily believe that there is anyone precipitating factor, and while she notes that her pattern has been to also become depressed for no particular identifiable reason, she notes that she and her of approximately 7 years have had ongoing communication problems. These problems include the fact that the patient would sometimes prefer to be alone, while her often wants to "do everything together." Also, the patient's reportedly is fairly blunt, while the patient, herself, tends to be more circumspect. Nevertheless, the relationship is described by the patient as being mutually supportive and fairly solid. She tells us that she has never actually made a suicide attempt, but has had chronic thoughts of suicide throughout most of her life. She has, however, engaged in self-injurious behaviors over the years. These have included self cutting and banging her head against a wall. She had not engaged in these behaviors for a matter of years, but in the past several months has once again began hitting her head against a wall as a way of relieving emotional tension. The patient notes that this resume behavior is a significant source of concern for the patient and she is afraid that she might inadvertently injure herself. Physical Exam Psychiatric Orientation: alert and cooperative Apperance: appropriately dressed, appropriately groomed and appeared stated age Eye Contact: good eye contact Motor Behavior: steady gait and station and no abnormal motor movements Speech: normal rate/rhythm/volume of speech Affect: euthymic affect and mood congruent with affect Mood: no depressed mood "Good, ready to go." Thought Process: goal directed thought process and linear/logical thought process Thought Content: reality based without delusions Suicidal Thoughts: denies suicidal thoughts Homicidal Thoughts: denies homicidal thoughts Hallucinations: no auditory hallucinations Cognition: recent memory grossly intact, attention grossly intact and language grossly intact Estimated Intelligence: consistent with education level Insight: good insight Judgement: good judgement Vital Signs (Past 24 Hours) Last Vital Signs Temp 36.5 C 08/17/19 06:28 Pulse 81 08/17/19 06:29 Resp 20 08/17/19 06:28 BP 133/88 08/17/19 06:29 Pulse Ox 97 08/15/19 21:52 Principal Diagnosis Major depressive disorder, recurrent, severe without psychosis Psychiatric Data The patient was hospitalized for 5 days. On admission, she was switched from extended release bupropion to immediate release in divided dosing, due to her history of gastric bypass surgery. She was also offered a trial of zolpidem for insomnia. She was continued on her home doses of venlafaxine and lamotrigine. Meeting was scheduled with her , and was held on 08/14/2019. Much of the meeting was spent discussing communication problems. The patient reported poor self-esteem and a tendency to put the needs and concerns of others in front of her own. They discussed ways to improve communication. The patient discussed some of her concerns that date back to childhood, and her father's harsh behavior towards her. They discussed safety concerns, and her clarified that she has a gun, but it is secured and the patient does not have access to it. Her confirmed there are no access medications at home, and denied other safety concerns. We discussed future plans, including upcoming trip to [place], and broadening her support network to include friends, and not just her . Patient continues to endorse anxiety, was able to work on coping strategies. She and her decided to pursue couples therapy, and were referred to [facility]. She reported improved mood, sleep, and anxiety throughout the course of her stay, and resolution of suicidal thoughts. She utilized the patient workbook, and attended and participated in groups and therapy. Day of Discharge Assessment Staff report the patient continues to engage in treatment, is denying suicidal thoughts, and performing ADLs independently. On my assessment, she states that she is feeling "good, ready to go." She states that the medication changes seem to be helping, and denies side effects. She states her mood is improved but continues to have "some ups and downs," stating she "started out pretty low yesterday, but got better as the day went on, and I got through it." She denies suicidal thoughts and denies any acute safety concerns. She has been using the patient workbook and finding it helpful, and notes distraction and physical activities have been the most beneficial coping skills. She has appointments over the next few days and would like to have the option to postpone returning to work until after her vacation, which starts next week. Transition of Care Transition Of Care Record: was reviewed with the patient Advance Directives Advance Directives Information Provided: Yes Advance Directives: No Mental Health Advance Directive: No Advance Directives on File: No Living Will: No Power of Affiliate Marketing Specialist: No Advance Directives Reason:: Declines as Mental Health Visit. Risk Factors Assessment Risk factors were mitigated by admission to the inpatient unit, adjusting medications to target mood and insomnia, involving her in groups and therapy, working on healthy coping skills and a discharge safety plan, coordination of care with outpatient clinicians, family meeting with her , and referral for increased services (couples therapy). She is reporting improved mood, sleep, and anxiety, consistently denying suicidal thoughts, and performing ADLs independently. She is taking medications as prescribed and indicates willingness to follow-up with outpatient treatment. She is making plans for the future, reports she is looking forward to a vacation to [place] next week. She is requesting discharge, and that she is no longer at acute risk of harm to herself, can be managed as an outpatient at this time. 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) Stable Relationships: Yes Supportive Family: Yes Good Rapport with Provider: Yes Tobacco Cessation at Discharge Tobacco Cessation Medication Prescribed at Discharge: Not Applicable/Non-Smoker Total Time Total Time Spent: Greater Than 30 Minutes Total Time Includes: Examination of the patient, Discharge Planning and Medication Reconciliation Discharge Data Lab Results 08/12/19 08/12/19 08/12/19 16:06 16:06 16:06 WBC 5.05 RBC 4.27 Hgb 12.3 Hct 37.6 MCV 88.1 MCH 28.8 MCHC 32.7 RDW Std Deviation 43.0 RDW Coeff of Mark 13.4 Plt Count 245 MPV 9.4 Immature Gran % (Auto) 0.2 Neut % (Auto) 64.0 Lymph % (Auto) 28.1 [place] % (Auto) 5.9 Eos % (Auto) 1.0 Baso % (Auto) 0.8 Immature Gran # (Auto) 0.01 Neut # (Auto) 3.23 Lymph # (Auto) 1.42 [place] # (Auto) 0.30 Eos # (Auto) 0.05 Baso # (Auto) 0.04 Sodium 141 Potassium 3.8 Chloride 107 Carbon Dioxide 28 Anion Gap 6.0 BUN 10 Creatinine 0.64 Est Cr Clr Drug Dosing 124.4 Est GFR ( Amer) 122.3 Est GFR (Non-Af Amer) 105.5 BUN/Creatinine Ratio 15.4 Glucose 107 H Calcium 8.7 Total Bilirubin 0.2 AST 14 L ALT 21 Alkaline Phosphatase 152 H Total Protein 7.3 Albumin 3.3 L Globulin 4.0 Albumin/Globulin Ratio 0.8 L Vitamin B12 Folate TSH 1.890 Urine Color Urine Appearance Urine pH Ur Specific [place] Urine Protein Urine Glucose (UA) Urine Ketones Urine Blood Urine Nitrite Urine Bilirubin Urine Urobilinogen Ur Leukocyte Esterase POC Ur Test Salicylates < 1.7 L Urine Opiates Screen Ur Methadone, Qual Acetaminophen < 2 L Urine Barbiturates Ur Phencyclidine (PCP) U Amphetamin/Meth Scrn MDMA (Ecstasy) Screen U Benzodiazepines Scrn Ur Cocaine Metabolite U Marijuana (THC) Screen Ethyl Alcohol mg/dL 08/12/19 08/12/19 08/12/19 16:06 17:50 17:50 WBC RBC Hgb Hct MCV MCH MCHC RDW Std Deviation RDW Coeff of Mark Plt Count MPV Immature Gran % (Auto) Neut % (Auto) Lymph % (Auto) [place] % (Auto) Eos % (Auto) Baso % (Auto) Immature Gran # (Auto) Neut # (Auto) Lymph # (Auto) [place] # (Auto) Eos # (Auto) Baso # (Auto) Sodium Potassium Chloride Carbon Dioxide Anion Gap BUN Creatinine Est Cr Clr Drug Dosing Est GFR ( Amer) Est GFR (Non-Af Amer) BUN/Creatinine Ratio Glucose Calcium Total Bilirubin AST ALT Alkaline Phosphatase Total Protein Albumin Globulin Albumin/Globulin Ratio Vitamin B12 Folate TSH Urine Color Yellow Urine Appearance Clear Urine pH 8.5 H Ur Specific [place] 1.011 Urine Protein Negative Urine Glucose (UA) Negative Urine Ketones Negative Urine Blood Negative Urine Nitrite Negative Urine Bilirubin Negative Urine Urobilinogen Negative Ur Leukocyte Esterase Negative POC Ur Test Salicylates Urine Opiates Screen Neg Ur Methadone, Qual Neg Acetaminophen Urine Barbiturates Neg Ur Phencyclidine (PCP) Neg U Amphetamin/Meth Scrn Neg MDMA (Ecstasy) Screen Neg U Benzodiazepines Scrn Neg Ur Cocaine Metabolite Neg U Marijuana (THC) Screen Neg Ethyl Alcohol mg/dL < 3.0 08/12/19 08/14/19 22:02 17:18 WBC RBC Hgb Hct MCV MCH MCHC RDW Std Deviation RDW Coeff of Mark Plt Count MPV Immature Gran % (Auto) Neut % (Auto) Lymph % (Auto) [place] % (Auto) Eos % (Auto) Baso % (Auto) Immature Gran # (Auto) Neut # (Auto) Lymph # (Auto) [place] # (Auto) Eos # (Auto) Baso # (Auto) Sodium Potassium Chloride Carbon Dioxide Anion Gap BUN Creatinine Est Cr Clr Drug Dosing Est GFR ( Amer) Est GFR (Non-Af Amer) BUN/Creatinine Ratio Glucose Calcium Total Bilirubin AST ALT Alkaline Phosphatase Total Protein Albumin Globulin Albumin/Globulin Ratio Vitamin B12 598 Folate > 24.00 TSH Urine Color Urine Appearance Urine pH Ur Specific [place] Urine Protein Urine Glucose (UA) Urine Ketones Urine Blood Urine Nitrite Urine Bilirubin Urine Urobilinogen Ur Leukocyte Esterase POC Ur Test NEG Salicylates Urine Opiates Screen Ur Methadone, Qual Acetaminophen Urine Barbiturates Ur Phencyclidine (PCP) U Amphetamin/Meth Scrn MDMA (Ecstasy) Screen U Benzodiazepines Scrn Ur Cocaine Metabolite U Marijuana (THC) Screen Ethyl Alcohol mg/dL Hospital Course (1) Suicidal ideation: 08/13 -Patient reports chronic suicidal thoughts, beginning in childhood, although she also notes that she has never made an actual suicide attempt. There is a history of intentional self-injurious behaviors, such as self cutting. Although these behaviors reportedly had stopped several years ago, recently the patient became alarmed when she began once again to hit her head deliberately against a wall as a way of relieving stress. She expresses a concern that she will accidentally more seriously injure herself. -The patient acknowledges that she was having thoughts of taking an overdose of medications. The patient also reports that the context for this was the fact that she was feeling distressed by the demands of work, the fact that she is having to work extra hours and is taking her a particularly long time to complete tasks because of poor concentration. (The patient does not have a history of ADHD symptoms.) -The patient has been admitted to the [facility] behavioral health unit where she is on suicide precautions and is being encouraged to participate in individual, group and activity therapies as a way of developing improved coping strategies. We also plan to actively involve the patient's and the treatment 08/16 - Pt denies active SI today - She does report ongoing SIB urges, even here on the unit to bang her head against the wall - denies acting on these urges during her admission (2) Depression: 08/13/19 -Patient reports she suffers from chronic, recurrent depression, worse for the past year and particularly for the past 2 months. Bupropion was added, evidently as an adjunct, approximately 2 months ago which seems to correspond with the patient's report that her symptoms have worsened in the past 2 months. However, the patient says that she feels pretty certain that the worsening depression has more to do with poor sleep and situational difficulties and that, in fact, she felt that bupropion was helpful and that it allowed her to concentrate and focus better. -We are increasing her dose of bupropion extended release from 150 mg a day to a dose of 300 mg a day. We will also continue venlafaxine 150 mg 3 times daily and lamotrigine 150 mg daily. 08/14 converted wellbutrin to ir form with 10mg tid with last dose at dinner, given s/p gastric bypass. checking vit b12 level and folic acid given s/p gastric bypass pt takes vit d and calcium routinely 08/15 addressing assertiveness and struggles to do so tied to above addressing potential of adding couples therapy as outpatient and ways to work on asserting self in manner that would feel safe for her and can add to her sense of safety 08/16 - Continue current medication regimen - patient reports perceived improvement in mood and reduced anxiety in the last several days - Will provide resources for couples counseling, as relationship concerns remain a predominant stressor - Confirm outpatient appointments with therapist and psychiatrist 08/17 -Patient requesting discharge, and no longer at acute risk. -Follow-up with individual therapist today, and outpatient psychiatrist Dr. Lora tomorrow. She has been referred to [facility] for couples counseling. (3) Obstructive sleep apnea: 08/13 -Patient is using her CPAP on the unit. She notes that there has been no change in her CPAP settings, and that sleep difficulties have always been an issue for herboth initial and intermittent insomnia. -We are adding Ambien 10 mg at bedtime to the patient's medication regimen. Material risks, including but not limited to the potential for habituation, sleepwalking, amnesia, fall risk, and exacerbation of sleep apnea were reviewed with the patient and she indicated understanding. There is a risk in this patient associated with using Ambien, but her consistent poor sleep seems to clearly be contributing to her level of depression and distress. (4) Hypertension: 08/13 -We will prescribe losartan for hypertension, and we will continue to monitor. Currently, the patient's blood pressure remains elevated. 08/16 - Reviewed ongoing elevated blood pressure readings with the patient - Advise staff consistently utilize the large blood pressure cuff for most accurate readings - Pt agreeable with increasing losartan to 50mg BID - risks, benefits, and potential side effects reviewed, with patient verbalizing understanding and remains agreeable to adjustment (5) Hypothyroidism: 08/13 -The patient's TSH at admission was 1.89. She reports that her hypothyroidism is being followed on an outpatient basis. Mental Health & Subst Abuse Tx Psychiatrist Name of Psychiatrist: Facklereben Rico - Dr. Lora Psychiatrist's Date of Appointment with Psychiatrist: 08/18/19 Time of Appointment with Psychiatrist: 8:00 a.m. Psychiatric Appointment Comment: [address] [facility], [address], [place] Therapist Name of Therapist: VALENTINA Dee Therapist's Date of Therapist Appointment: 08/17/19 Time of Therapist Appointment: 5:00 p.m. Therapy Appointment Comment: [address], [place] [id number] Post Discharge Appointments Primary Care Physician Name Of Family Doctor: [facility]se [facility] Date of Appointment with PCP: 08/20/19 Time of Appointment with PCP: 11:05am Provider Appointment Comment: [address], [place] [address] Smoking Cessation Counseling Tobacco Cessation Medication Prescribed at Discharge: Not Applicable/Non-Smoker Contact Information Discharge Discharge Address: [place] [address] Discharge Plan Discharge Items Patient Disposition: Home - Self-Care Reason For Visit: MDD Discharge Diagnosis: Major depressive disorder, recurrent, severe without psychosis Activity: Per Instructions section Non-emergency contact: Primary Care Provider, Psychiatrist and Therapist Call non-emergency contact if: you have any medication questions and your symptoms worsen Follow-up/Referrals: Candace Xavier DO [Primary Care Provider] - Diet: Regular Addtl Attending Provider Instructions: SPECIAL CARE INSTRUCTIONS: 1. Follow through with your scheduled aftercare appointments. If unable to keep an appointment, please call to reschedule. 2. Take your medication only as prescribed. Medication should not be changed or stopped without the approval of your doctor. In the event of worsening symptoms or concerns about side effects, contact your doctor immediately. 3. Utilize new healthy coping skills, anger management skills, and stress management skills learned during your hospitalization. Journal feelings and process them with a support person. Identify stressors or situations that may result in relapse, deterioration or inappropriate behaviors and develop a plan to deal with those issues. 4. If your coping skills are ineffective and you are in crisis, contact your outpatient providers for direction. If unable to reach your providers, please call the CAN HELP LINE AT or go to the closest Emergency Room. 5. Avoid alcohol and un-prescribed drugs. 6. You have been provided with the Mental Health Advance Directives Pamphlet for your review. AFTERCARE APPOINTMENTS: * Please call your insurance company prior to your scheduled appointment to confirm your aftercare providers are covered. Take your insurance information to your appointments. WHO TO CALL AND WHEN: Medical Emergencies: For questions or emergencies related to your hospital stay, please contact the Inpatient Behavioral Health Unit at [phone]. A vehicle controls engineer is on-call 20/01 for the Behavioral Health Unit for emergencies At any time you feel your situation is an emergency, you may also call 911 immediately. Your Doctors Instructions noted above were prepared by provider Geri Zeng MD. Pending Studies at Discharge: No Stand-Alone Forms: [facility], Smoking Cessation, Suicide Prevention Resources Medications and DC Order Prescriptions: New losartan 50 mg Tablet 50 mg PO BID Qty: 1 RF: 0 bupropion HCl 100 mg Tablet 100 mg PO TIDM Qty: 90 RF: 0 zolpidem 5 mg tablet 5 mg PO HS PRN (Reason: insomnia) Qty: 7 RF: 0 Continued calcium citrate malate-vit D3 250-100 mg-unit tablet 1 tab PO BID RF: 0 lamotrigine [Lamictal] 150 mg tablet 150 mg PO HS RF: 0 levothyroxine 125 mcg capsule 125 mcg PO DAILY RF: 0 Flintstones Plus Calcium tablet,chewable 1 tab PO DAILY RF: 0 loratadine [Claritin Liqui-Gel] 10 mg capsule 10 mg PO HS PRN (Reason: ALLERGIES) RF: 0 venlafaxine 100 mg tablet 150 mg PO TID RF: 0 meclizine 25 mg tablet 25 mg PO TID PRN (Reason: DIZZY) RF: 0 liothyronine [Cytomel] 5 mcg tablet 5 mcg PO DAILY RF: 0 Discontinued losartan [Cozaar] 50 mg tablet 75 mg PO DAILY RF: 0 bupropion HCl [Wellbutrin XL] 150 mg tablet extended release 24 hr 150 mg PO DAILY RF: 0 Discharge Orders: Discharge Order (Routine); Ordered 08/17/19 Ordered By: Geri Zeng Admission Data Admit Date/Time: 08/12/19 21:43 Attending Provider: Glenda Shea Admit Provider: Glenda Shea Primary Care Provider: Candace Xavier Other Interventions: Discharge Summary Assessment (RN) Last Done: 08/17/19 09:54 PSY Interdisciplinary Discharge Planning Last Done: 08/17/19 09:55 Coding Level of Care Code 65607 D/C day mgmt > 30 min Diagnoses Suicidal ideation R45.851 Depression F32.9 Depression Type: unspecified Obstructive sleep apnea G47.33 Hypertension I10 Hypothyroidism E03.9
[2019-08-17] MEDS ORDERED: DESTROY THIS MEDICATION ONE (09:58)
[2019-08-17 10:02] VITALS: BP 126/83; PULSE 88
[2019-08-17] MEDS ORDERED: ZOLPIDEM TARTRATE 5 MG TAB PO PRN (10:25)
[2019-08-22] MEDS ORDERED: buPROPion HCl 100 MG TABLET PO SCH (09:00)
== END 2019-08-17 14:50 | disposition home or self-care (01) | DRG 885 ==
LOC: ED 15:12 → 3S 21:43